=== PATIENT | female | born 1975 | race African-American/Black ===

== ENCOUNTER → 2017-02-24 | Outpatient (CLI) | payer BC ==
--- NOTE | 2017-02-25 09:16 | MM ---
Reason for exam: screening (asymptomatic). Last mammogram was performed 3 years and 5 months ago. History: Family history of breast cancer in mother at age 60. Took hormonal contraceptives beginning at age 13. Physical Findings: A clinical breast exam by your physician is recommended on an annual basis and results should be correlated with mammographic findings. MG Screening Mammo w CAD Bilateral CC and MLO view(s) were taken. Prior study comparison: September 16, 2013, bilateral digital screening mammo w/CAD. May 18, 2008, mammogram, performed at [facility]. There are scattered fibroglandular densities. There is chronic nodularity in the left breast. No significant changes when compared with prior studies. ASSESSMENT: Benign, BI-RAD 2 RECOMMENDATION: Routine screening mammogram of both breasts in 1 year.
== END | disposition home or self-care (01) ==
LOC: RADMAMWWP 12:57
PROVIDERS: ATTEND Obstetrics & Gynecology
DX: Z12.31 Encounter for screening mammogram for malignant neoplasm of breast (principal)

== ENCOUNTER → 2018-03-08 | Outpatient (CLI) | payer BC ==
--- NOTE | 2018-03-08 10:10 | US ---
EXAMINATION TYPE: US pelvis complete transvag DATE OF EXAM: 03/08/2018 COMPARISON: US 09/16/2013 CLINICAL HISTORY: N92.0 Excessive and frequent menstruation with reg; TECHNIQUE: Transvaginal (TV) and Transabdominal (TA) . Transabdominal sonographic images of the pel vis were acquired. Transvaginal sonographic images were medically necessary to better assess the fol lowing anatomy: endometrium and myometrium Date of LMP: 02/12/18 EXAM MEASUREMENTS: Uterus: 12.1 x 9.4 x 7.6cm Endometrial Stripe: 1.0 cm Right Ovary: 3.1 x 2.7 x 1.5 cm Left Ovary: 3.2 x 3.0 x 1.6 cm 1. Uterus: multiple uterine fibroids with largest at left myometrium = 3.4 x 3.8 x 3.8cm (previousl y 3.3 x 2.5 x 3.3 cm); enlarged uterus 2. Endometrium: thickness is wnl for Day 24 LMP 3. Right Ovary: small follicles were seen 4. Left Ovary: small follicles 5. Bilateral Adnexa: wnl 6. Posterior cul-de-sac: wnl IMPRESSION: Slight interval enlargement of the largest known intramural leiomyoma no measuring up to 3.8 cm and previously measured up to 3.3 cm on the exam of 2013. Endometrial thickness is within norm al limits.
== END | disposition home or self-care (01) ==
LOC: RADUSWWP 08:17
PROVIDERS: ATTEND Obstetrics & Gynecology
DX: D25.1 Intramural leiomyoma of uterus (principal)
CPT/HCPCS: 76830; 76856

== ENCOUNTER → 2018-03-08 | Outpatient (CLI) | payer BC ==
[2018-03-08 12:04] LABS: Basophils % (A) 0 %; Eosinophils # (A) 0.2 k/uL (0-0.7); Eosinophils % (A) 4 %; HCT 40.5 % (34.0-46.0); Lymphocytes # (A) 1.9 k/uL (1.0-4.8); Lymphocytes % (A) 33 %; MCH 30.7 pg (25.0-35.0); MCHC 32.2 g/dL (31.0-37.0); MCV 95.5 fL (80.0-100.0); Mean Platelet Volume 6.8; Monocytes # (A) 0.5 k/uL (0-1.0); Monocytes % (A) 8 %; Neutrophils # (A) 2.9 k/uL (1.3-7.7); Neutrophils % (A) 51 %; Platelet Count 267 k/uL (150-450); RBC 4.24 m/uL (3.80-5.40); RDW 13.9 % (11.5-15.5); WBC 5.7 k/uL (3.8-10.6)
== END | disposition home or self-care (01) ==
LOC: LABPAT 09:09
PROVIDERS: ATTEND Obstetrics & Gynecology
DX: Z01.812 Encounter for preprocedural laboratory examination (principal)
CPT/HCPCS: 36415; 85025

== ENCOUNTER 2018-03-29 06:00 | Day surgery (SDC) | payer BC ==
[2018-03-22 13:08] VITALS: BMI 37.3
--- NOTE | 2018-03-28 16:08 | P.HPOB ---
History of Present Illness H&P Date: 03/28/18 Chief Complaint: Menorrhagia with regular cycle, family planning This is a 42-year-old female 4 para 3 who presents for dilation and curettage with hysteroscopy and NovaSure endometrial ablation for menorrhagia with regular cycle and laparoscopic bilateral tubal ligation via fulguration for family planning. She complains of heavy painful menses that have been going on for years now but have been worsening. Her menses are occurring every 32-35 days and lasting at least 10 days with large clots. She has to wear an overnight pad and change it every hour during her heaviest times. Her latest ultrasound showed a uterus measuring 12.1 x 9.4 x 7.6 cm with multiple fibroids. The largest was at the left myometrium measuring 3.8 x 3.4 cm. Endometrial thickness was 1 cm. Both ovaries were normal sized with small follicles. Review of Systems Constitutional: Reports fatigue (First 2 days of cycle), Reports night sweats, Denies chills, Denies fever Eyes: denies blurred vision, denies pain Ears, nose, mouth and throat: Denies headache, Denies sore throat Cardiovascular: Denies chest pain, Denies shortness of breath Respiratory: Denies cough Gastrointestinal: Denies abdominal pain, Denies diarrhea, Denies nausea, Denies vomiting Genitourinary: Reports dysmenorrhea, Reports menorrhagia, Reports pelvic pain Musculoskeletal: Reports low back pain Musculoskeletal: left: foot swelling Integumentary: Denies pruritus, Denies rash Neurological: Denies numbness, Denies weakness Psychiatric: Reports anxiety, Reports depression, Reports irritability Past Medical History Past Medical History: Hypertension History of Any Multi-Drug Resistant Organisms: None Reported Additional Past Surgical History / Comment(s): [place] teeth extracted, D&C. Past Anesthesia/Blood Transfusion Reactions: No Reported Reaction Past Psychological History: Anxiety, Depression Smoking Status: Current every day smoker Past Alcohol Use History: Occasional Additional Past Alcohol Use History / Comment(s): Has been smoking for 5 yrs, 1/ 2 PPD. Past Drug Use History: Opiates Additional Drug Use History / Comment(s): Hx of addiction to Opiates 10 yrs ago for 2 yrs, has been on Suboxone, weaned self off 30 days ago. (Patient's family unaware of this history, please keep confidential per patient.) - Past Family History Father Family Medical History: Cancer Additional Family Medical History / Comment(s): Prostate cancer. Mother Family Medical History: Cancer Additional Family Medical History / Comment(s): Breast cancer. Medications and Allergies Home Medications Medication Instructions Recorded Confirmed Type Triamterene-Hctz 37.5-25Mg 1 tab PO QAM 08/16/16 03/22/18 History [Maxzide 37.5-25] ALPRAZolam [Xanax] 1 mg PO BID PRN 03/22/18 03/22/18 History Iron (Unknown Dose) 1 tab PO DAILY 03/22/18 03/22/18 History Multivitamins, Thera [Multivitamin 1 tab PO DAILY 03/22/18 03/22/18 History (formulary)] Allergies Allergy/AdvReac Type Severity Reaction Status Date / Time Penicillins Allergy Rash/Hives Verified 03/22/18 12:39 Exam Osteopathic Statement: *. No significant issues noted on an osteopathic structural exam other than those noted in the History and Physical/Consult. HEENT: Within normal limits Heart: Regular rate and rhythm Lungs: Clear to auscultation bilaterally Abdomen: Soft, nontender Pelvic exam: Uterus is anteverted, slightly enlarged and nodular, with no adnexal masses or tenderness noted. Extremities: Negative Homans Assessment and Plan (1) Menorrhagia with regular cycle Status: Acute Code(s): N92.0 - EXCESSIVE AND FREQUENT MENSTRUATION WITH REGULAR CYCLE SNOMED Code(s): 400386234 (2) Family planning Status: Acute Code(s): Z30.09 - ENCOUNTER FOR OT GENERAL CNSL AND ADVICE ON CONTRACEPTION SNOMED Code(s): 334550899 Plan: Proceed with laparoscopic bilateral tubal ligation via fulguration and dilation and curettage with hysteroscopy and NovaSure endometrial ablation. I have discussed the risks, benefits, and alternative therapies for the above- mentioned procedure and for both sedation/anesthesia as well as necessary blood products administration, if indicated, as they pertain to this patient. The patient has indicated her understanding and acceptance of the risks and procedures discussed.
[~2018-03-29 06:00] MED LIST: DEXAMETHASONE SOD PHOSPHATE 10 MG/ML 1 ML VIAL IV ONE; LACTATED RINGERS 1,000 ML IV SCH; LIDOCAINE 1% 20 ML VIAL (10MG/ML) FOR IV START INTRADERMA PRN; MIDAZOLAM 2 MG/2 ML VIAL IV PRN; ONDANSETRON 4 MG/2 ML VIAL IVP ONE; Pre Op ABX Message 1 EACH MISC MISCELLANE ONE; SCOPOLAMINE 1.5MG/72HR PATCH TRANSDERM ONE
[2018-03-29] MEDS ORDERED: SUCCINYLCHOLINE CHLORIDE 100 MG/5 ML SYR IV ONE (07:39)
[2018-03-29] MEDS ORDERED: MIDAZOLAM 2 MG/2 ML VIAL ONE (07:39)
[2018-03-29] MEDS ORDERED: GLYCOPYRROLATE 0.2 MG/ML 2 ML VIAL ONE ×2 (07:39)
[2018-03-29] MEDS ORDERED: PROPOFOL 10 MG/ML 20 ML VIAL IV ONE (07:39)
[2018-03-29] MEDS ORDERED: ROCURONIUM BROMIDE 10 MG/ML 10 ML VIAL IV ONE (07:39)
[2018-03-29] MEDS ORDERED: fentaNYL (PF) 50 MCG/ML 2 ML AMP ONE (07:39)
[2018-03-29] MEDS ORDERED: NEOSTIGMINE 1 MG/ML 10 ML VIAL ONE (07:39)
[2018-03-29] MEDS ORDERED: LIDOCAINE 2%-EPI 1:100,000 20 ML VIAL ONE (07:39)
[2018-03-29] MEDS ORDERED: KETOROLAC 30 MG/ML 1 ML VIAL ONE (07:39)
[2018-03-29] MEDS ORDERED: BUPIVACAINE (PF) 0.5% 30 ML VIAL SQ ONE ×2 (08:22)
--- NOTE | 2018-03-29 08:37 | P.OP ---
Date of Procedure: 03/29/18 Preoperative Diagnosis: Menorrhagia with regular cycle Family planning Postoperative Diagnosis: Same Procedure(s) Performed: Dilation and curettage with hysteroscopy and attempted NovaSure endometrial ablation Laparoscopic bilateral tubal ligation via fulguration Anesthesia: GILBERTO Surgeon: Elizabeth Li Estimated Blood Loss (ml): 25 Pathology: other (Endometrial curettings) Condition: stable Disposition: same day Indications for Procedure: This is a 42-year-old female 4 para 3 who presents for dilation and curettage with hysteroscopy and NovaSure endometrial ablation for menorrhagia with regular cycle and laparoscopic bilateral tubal ligation via fulguration for family planning. She complains of heavy painful menses that have been going on for years now but have been worsening. Her menses are occurring every 32-35 days and lasting at least 10 days with large clots. She has to wear an overnight pad and change it every hour during her heaviest times. Her latest ultrasound showed a uterus measuring 12.1 x 9.4 x 7.6 cm with multiple fibroids. The largest was at the left myometrium measuring 3.8 x 3.4 cm. Endometrial thickness was 1 cm. Both ovaries were normal sized with small follicles. Operative Findings: Uterus is anteverted and bulky on palpation. No adnexal masses are palpated. Cervix is sounded to 3 cm and uterus is sounded to 10 cm. Upon hysteroscopy a very dyssynchronous endometrial pattern is noted. Neither tubal ostia was completely visualized. A minimal to moderate amount of endometrial curettings are obtained. Upon laparoscopy, a bulky fibroid uterus was noted with multiple fibroids visualized. Both tubes and ovaries appeared normal. The left ovary did have a small simple cyst noted. Description of Procedure: The patient is taken to the operating room. She is placed in the dorsal lithotomy position after general anesthesia was given. She is prepped and draped in the normal sterile fashion. Bladder is drained with a catheter and then removed. Pelvic exam is performed under anesthesia. Uterus is found to be anteverted and bulky with no adnexal masses. She is placed in slight Trendelenburg position. A right angle retractor is used to visualize the cervix. The anterior lip of the cervix is grasped with a single-tooth tenaculum. Cervix is sounded to 3 cm. Uterus is sounded to 10 cm. Cervix is gently dilated with Samaniego dilators until a hysteroscope could be passed. Hysteroscopy is performed using normal saline. The above noted findings are noted. Next a polyp forceps is introduced. A minimal amount of tissue was obtained. Next medium-sized size sharp curette was placed. A minimal to moderate amount of endometrial curettings were obtained. Next NovaSure array was inserted into the endometrial cavity. Length was set at 6.5 cm and width was determined to be 4.8 cm. Next cavity assessment was completed and passed on the first try. Next NovaSure array was fired at 172 W for initially 46 seconds followed by another 16 seconds for a total of 59 seconds. After the first 46 seconds, a vacuum air was noted. The array was removed and then replaced and cavity assessment was again completed and passed and then another 16 seconds of ablation was carried out before the vacuum air happened again. The array was again removed and then reinserted and this time the cavity assessment did not pass. The procedure was then abandoned. Next the array was removed, inspected and then discarded. Next the hysteroscope was reinserted. Uniform charring was noted. Pictures were taken. Hysteroscope was removed. Next a kroner uterine manipulator was inserted through the cervix and the balloon was inflated. Single-tooth tenaculum was removed from the anterior lip of the cervix. Minimal bleeding was noted. All other instruments removed from the vagina. Attention is then turned to the abdomen after gloves are changed. The infraumbilical fold was grasped in transverse fashion with 2 Allis clamps. A small transverse incision was made with a scalpel. A hemostat was used to carry the incision down to the underlying layer of fascia. A towel clip was placed above the umbilicus for retraction. A 11 mm disposable bladeless trocar was then inserted into the peritoneal cavity under direct visualization. Once inside, pneumoperitoneum was achieved with CO2 gas. The insert was removed and the camera was placed. Intraperitoneal placement was confirmed. No bleeding was noted. Next the patient was placed in Trendelenburg position. A small stab incision was made suprapubically and a 5 mm disposable bladeless trocar was inserted into the peritoneal cavity under direct visualization. Once inside pelvic contents were inspected. Next a bipolar Kleppinger instrument was placed through the inferior trocar and the midportion of each tube was brought away from other structures and completely fulgurated on approximate 2-3 cm segment of each tube. Excellent hemostasis was noted. Pictures were taken. Pneumoperitoneum was released after the inferior trocar was removed under direct visualization. The upper trocar was then removed. The fascial incision was closed with 0 Vicryl suture in interrupted [id number] stitch. The skin incisions were then closed with 4-0 Vicryl suture in a subcuticular fashion. The inferior incision was also closed with a single interrupted stitch for hemostasis. Incision sites were then injected with half percent bupivacaine. Approximately 7 mL were used. Next the kroner uterine manipulator was removed. Minimal bleeding was noted. All sponge and needle counts are correct. The patient is then taken to recovery room in stable condition.
[2018-03-29] MEDS: HYDROmorphone 1 MG/ML 1 ML SYRINGE IVP PRN ×2 (08:55→09:00)
[2018-03-29 09:03] VITALS: TEMP 98
[2018-03-29] MEDS: MEPERIDINE 50 MG/ML SYRINGE IVP ONE ×2 (09:06→09:12)
[2018-03-29] MEDS ORDERED: diphenhydrAMINE 50 MG/ML 1 ML VIAL IVP ONE (09:12)
[2018-03-29] MEDS ORDERED: METOPROLOL TARTRATE 5 MG/5 ML VIAL IVP ONE (09:21)
[2018-03-29] MEDS ORDERED: fentaNYL (PF) 50 MCG/ML 2 ML AMP IVP ONE (09:31)
[2018-03-29] MEDS ORDERED: HYDROcodone/APAP 5-325MG 1 EACH TAB PO ONE (10:18)
[2018-03-29 10:51] VITALS: BP 149/69; PULSE 67; RESP 20
== END 2018-03-29 11:07 | disposition home or self-care (01) ==
LOC: OR 06:00
PROVIDERS: ATTEND Obstetrics & Gynecology
DX: Z30.2 Encounter for sterilization (principal); D25.9 Leiomyoma of uterus, unspecified; N92.0 Excessive and frequent menstruation with regular cycle; N94.6 Dysmenorrhea, unspecified; I10 Essential (primary) hypertension; F41.9 Anxiety disorder, unspecified; F32.9 Major depressive disorder, single episode, unspecified; F17.210 Nicotine dependence, cigarettes, uncomplicated; Z79.899 Other long term (current) drug therapy; Z88.0 Allergy status to penicillin
CPT/HCPCS: 81025; 58563; 58670; J2250; J1200; J1100; J2710; J2175; J2405; J3010; J1885; J1170; J0330; J2704; 88305

== ENCOUNTER 2018-04-14 07:52 | Emergency (ER) | payer BC ==
[2018-04-14 08:00] VITALS: RESP 18
[2018-04-14] MEDS ORDERED: MORPHINE SULFATE 2 MG/ML SYRINGE IVP STA (08:31)
[2018-04-14] MEDS ORDERED: SODIUM CHLORIDE 0.9% 1,000 ML IV ONE (08:31)
[2018-04-14] MEDS ORDERED: ONDANSETRON 4 MG/2 ML VIAL IVP STA (08:31)
--- NOTE | 2018-04-14 08:37 | ED ---
Female Urogenital HPI - General Chief complaint: Vaginal Bleeding Stated complaint: Bleeding/abd.pain/post surgery Time Seen by Provider: 04/14/18 08:06 Source: patient, RN notes reviewed, old records reviewed Mode of arrival: ambulatory Limitations: no limitations - History of Present Illness Initial comments: This patient's a 42-year-old female proximally 2 weeks post D&C and tubal ligation by Dr. Li. Patient reports that last night into today she started to have some heavy vaginal bleeding. Patient states that she also has been having some suprapubic sharp pain. Patient reports that when they did the D&C she continued to have some cysts afterwards. They were unable to remove the mall that time. Patient states that she has had no fevers or chills. She does report that she has history of poor bowel movements, and has had 3 bowel movements within the past 2 weeks. She denies any drainage from the umbilical and suprapubic incision site. Last Menstrual Period: 03/11/18 - Related Data Home Medications Medication Instructions Recorded Confirmed Triamterene-Hctz 37.5-25Mg 1 tab PO QAM 08/16/04/14/18 [Maxzide 37.5-25] ALPRAZolam [Xanax] 1 mg PO BID PRN 03/22/18 04/14/18 Iron (Unknown Dose) 1 tab PO DAILY 03/22/18 04/14/18 Multivitamins, Thera [Multivitamin 1 tab PO DAILY 03/22/18 04/14/18 (formulary)] Previous Rx's Medication Instructions Recorded Acetaminophen-Codeine 300-30mg 1 tab PO Q6H PRN 3 Days #12 tablet 04/14/18 [Tylenol w/codeine #3] Ciprofloxacin HCl [Cipro] 500 mg PO Q12HR #20 tablet 04/14/18 Docusate [Colace] 100 mg PO BID #20 capsule 04/14/18 metroNIDAZOLE [Flagyl] 500 mg PO TID #30 tab 04/14/18 Allergies Allergy/AdvReac Type Severity Reaction Status Date / Time Penicillins Allergy Rash/Hives Verified 04/14/18 08:00 Review of Systems ROS Statement: Those systems with pertinent positive or pertinent negative responses have been documented in the HPI. ROS Other: All systems not noted in ROS Statement are negative. Past Medical History Past Medical History: Hypertension History of Any Multi-Drug Resistant Organisms: None Reported Past Surgical History: Ablation Additional Past Surgical History / Comment(s): [place] teeth extracted, D&C. Past Anesthesia/Blood Transfusion Reactions: No Reported Reaction Past Psychological History: Anxiety, Depression Smoking Status: Current every day smoker Past Alcohol Use History: Occasional Past Drug Use History: None Reported, Opiates - Past Family History Father Family Medical History: Cancer Additional Family Medical History / Comment(s): Prostate cancer. Mother Family Medical History: Cancer Additional Family Medical History / Comment(s): Breast cancer. General Exam - General Exam Comments Initial Comments: Well-appearing 42-year-old -[place] female. No significant distress. Limitations: no limitations General appearance: alert, in no apparent distress Head exam: Present: atraumatic, normocephalic, normal inspection Eye exam: Present: normal appearance, PERRL, EOMI. Absent: scleral icterus, conjunctival injection, periorbital swelling ENT exam: Present: normal exam, mucous membranes moist Neck exam: Present: normal inspection. Absent: tenderness, meningismus, lymphadenopathy Respiratory exam: Present: normal lung sounds bilaterally. Absent: respiratory distress, wheezes, rales, rhonchi, stridor Cardiovascular Exam: Present: regular rate, normal rhythm, normal heart sounds. Absent: systolic murmur, diastolic murmur, rubs, gallop, clicks GI/Abdominal exam: Present: soft, tenderness (suprapubic tenderness, left lower quadrant tenderness), normal bowel sounds. Absent: distended, guarding, rebound , rigid Extremities exam: Present: normal inspection, full ROM, normal capillary refill. Absent: tenderness, pedal edema, joint swelling, calf tenderness Back exam: Present: normal inspection Neurological exam: Present: alert, oriented X3, CN II-XII intact Psychiatric exam: Present: normal affect, normal mood Skin exam: Present: warm, dry, intact, normal color. Absent: rash Course Vital Signs 04/14/18 04/14/18 07:56 10:25 Temperature 98.3 F Pulse Rate 96 84 Respiratory 18 18 Rate Blood Pressure 132/84 138/79 O2 Sat by Pulse 100 99 Oximetry Medical Decision Making - Medical Decision Making 42-year-old female comes in today with increased vaginal bleeding and lower abdominal pain. Patient has some left lower quadrant suprapubic tenderness. She does report history of constipation as well. Patient labwork obtained was unremarkable. Vital signs are stable. Computed tomography scan shows suspicious for diverticulitis, for Patient of these results. Patient was started on Cipro and Flagyl. Her bleeding has diminished at this time. No significant bleeding noted on external exam. Patient SENIOR RESEARCH CONSULTANT is Dr. Li. I informed her that her hemoglobin and white blood cell count are stable. No concern for infectious process related to her recent surgery. She does continue a bulky uterus and fibroids. Likely related to the source of bleeding Patient could also be on her menstrual cycle at this time. I did discuss close follow-up with PCP and SENIOR RESEARCH CONSULTANT. All questions answered return parameters were discussed. - Lab Data Result diagrams: 04/14/18 08:40 04/14/18 08:40 Lab Results 04/14/18 04/14/18 04/14/18 Range/Units 08:33 08:40 08:40 WBC 5.6 (3.8-10.6) k/uL RBC 4.45 (3.80-5.40) m/uL Hgb 13.3 (11.4-16.0) gm/dL Hct 41.8 (34.0-46.0) % MCV 93.9 (80.0-100.0) fL MCH 29.9 (25.0-35.0) pg MCHC 31.9 (31.0-37.0) g/dL RDW 13.1 (11.5-15.5) % Plt Count 298 (150-450) k/uL Neutrophils % 51 % Lymphocytes % 34 % Monocytes % 8 % Eosinophils % 5 % Basophils % 0 % Neutrophils # 2.8 (1.3-7.7) k/uL Lymphocytes # 1.9 (1.0-4.8) k/uL Monocytes # 0.4 (0-1.0) k/uL Eosinophils # 0.3 (0-0.7) k/uL Basophils # 0.0 (0-0.2) k/uL PT (9.0-12.0) sec INR (<1.2) APTT (22.0-30.0) sec Sodium 140 (137-145) mmol/L Potassium 4.7 (3.5-5.1) mmol/L Chloride 106 (98-107) mmol/L Carbon Dioxide 22 (22-30) mmol/L Anion Gap 12 mmol/L BUN 13 (7-17) mg/dL Creatinine 0.71 (0.52-1.04) mg/dL Est GFR (CKD-EPI)AfAm >90 (>60 ml/min/1.73 sqM) Est GFR (CKD-EPI)NonAf >90 (>60 ml/min/1.73 sqM) Glucose 93 (74-99) mg/dL Calcium 9.7 (8.4-10.2) mg/dL Total Bilirubin 0.3 (0.2-1.3) mg/dL AST 22 (14-36) U/L ALT 27 (9-52) U/L Alkaline Phosphatase 90 (38-126) U/L Total Protein 7.7 (6.3-8.2) g/dL Albumin 4.6 (3.5-5.0) g/dL Urine Color Light Red Urine Appearance Turbid H (Clear) Urine pH 5.5 (5.0-8.0) Ur Specific [place] 1.017 (1.001-1.035) Urine Protein 1+ H (Negative) Urine Glucose (UA) Negative (Negative) Urine Ketones Negative (Negative) Urine Blood Large H (Negative) Urine Nitrite Negative (Negative) Urine Bilirubin Negative (Negative) Urine Urobilinogen <2.0 (<2.0) mg/dL Ur Leukocyte Esterase Small H (Negative) Urine RBC 81 H (0-5) /hpf Urine WBC 8 H (0-5) /hpf Ur Squamous Epith Cells 2 (0-4) /hpf Amorphous Sediment Occasional H (None) /hpf Urine Bacteria Occasional H (None) /hpf Urine Mucus Many H (None) /hpf Blood Type Blood Type Recheck Antibody Screen Spec Expiration Date 04/14/18 04/14/18 Range/Units 08:40 08:40 WBC (3.8-10.6) k/uL RBC (3.80-5.40) m/uL Hgb (11.4-16.0) gm/dL Hct (34.0-46.0) % MCV (80.0-100.0) fL MCH (25.0-35.0) pg MCHC (31.0-37.0) g/dL RDW (11.5-15.5) % Plt Count (150-450) k/uL Neutrophils % % Lymphocytes % % Monocytes % % Eosinophils % % Basophils % % Neutrophils # (1.3-7.7) k/uL Lymphocytes # (1.0-4.8) k/uL Monocytes # (0-1.0) k/uL Eosinophils # (0-0.7) k/uL Basophils # (0-0.2) k/uL PT 9.5 (9.0-12.0) sec INR 0.9 (<1.2) APTT 21.8 L (22.0-30.0) sec Sodium (137-145) mmol/L Potassium (3.5-5.1) mmol/L Chloride (98-107) mmol/L Carbon Dioxide (22-30) mmol/L Anion Gap mmol/L BUN (7-17) mg/dL Creatinine (0.52-1.04) mg/dL Est GFR (CKD-EPI)AfAm (>60 ml/min/1.73 sqM) Est GFR (CKD-EPI)NonAf (>60 ml/min/1.73 sqM) Glucose (74-99) mg/dL Calcium (8.4-10.2) mg/dL Total Bilirubin (0.2-1.3) mg/dL AST (14-36) U/L ALT (9-52) U/L Alkaline Phosphatase (38-126) U/L Total Protein (6.3-8.2) g/dL Albumin (3.5-5.0) g/dL Urine Color Urine Appearance (Clear) Urine pH (5.0-8.0) Ur Specific [place] (1.001-1.035) Urine Protein (Negative) Urine Glucose (UA) (Negative) Urine Ketones (Negative) Urine Blood (Negative) Urine Nitrite (Negative) Urine Bilirubin (Negative) Urine Urobilinogen (<2.0) mg/dL Ur Leukocyte Esterase (Negative) Urine RBC (0-5) /hpf Urine WBC (0-5) /hpf Ur Squamous Epith Cells (0-4) /hpf Amorphous Sediment (None) /hpf Urine Bacteria (None) /hpf Urine Mucus (None) /hpf Blood Type A Positive Blood Type Recheck No Antibody Screen NEGATIVE Spec Expiration Date 04/17/2018 - 2345 - Radiology Data Radiology results: report reviewed suspicions for Dr. 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 Large bulky uterus compatible with fibroids previously identified. Disposition Clinical Impression: Vaginal bleeding, Diverticulitis, Uterine fibroid Disposition: HOME SELF-CARE Condition: Good Instructions: Dysfunctional Uterine Bleeding (ED), Diverticulitis (ED) Additional Instructions: Patient advised follow-up with primary care provider and SENIOR RESEARCH CONSULTANT. Return to the emergency department if any alarming signs or symptoms occur. Prescriptions: Acetaminophen-Codeine 300-30mg [Tylenol w/codeine #3] 1 tab PO Q6H PRN 3 Days # 12 tablet PRN Reason: Pain Ciprofloxacin HCl [Cipro] 500 mg PO Q12HR #20 tablet Docusate [Colace] 100 mg PO BID #20 capsule metroNIDAZOLE [Flagyl] 500 mg PO TID #30 tab Is patient prescribed a controlled substance at d/c from ED?: Yes When asked, does pt state using other controlled substances?: No If prescribed controlled substance>3 days was MAPS reviewed?: Prescribed <3 Days If opioid is for acute pain is fill amount 7 days or less?: Yes If Rx opioid, was Start Talking consent form obtained?: Yes Referrals: Jennifer Corbett MD [Primary Care Provider] - 1-2 days Time of Disposition: 12:18
[2018-04-14 09:08] LABS: Basophils % (A) 0 %; Eosinophils # (A) 0.3 k/uL (0-0.7); Eosinophils % (A) 5 %; HCT 41.8 % (34.0-46.0); HGB 13.3 gm/dL (11.4-16.0); Lymphocytes # (A) 1.9 k/uL (1.0-4.8); Lymphocytes % (A) 34 %; MCH 29.9 pg (25.0-35.0); MCHC 31.9 g/dL (31.0-37.0); MCV 93.9 fL (80.0-100.0); Mean Platelet Volume 6.8; Monocytes # (A) 0.4 k/uL (0-1.0); Monocytes % (A) 8 %; Neutrophils # (A) 2.8 k/uL (1.3-7.7); Neutrophils % (A) 51 %; Platelet Count 298 k/uL (150-450); RBC 4.45 m/uL (3.80-5.40); RDW 13.1 % (11.5-15.5); WBC 5.6 k/uL (3.8-10.6)
[2018-04-14 09:22] LABS: ALT 27 U/L (9-52); AST 22 U/L (14-36); Albumin 4.6 g/dL (3.5-5.0); Alkaline Phosphatase 90 U/L (38-126); Anion Gap 12 mmol/L; Blood Urea Nitrogen 13 mg/dL (7-17); Calcium 9.7 mg/dL (8.4-10.2); Carbon Dioxide 22 mmol/L (22-30); Chloride 106 mmol/L (98-107); Glucose 93 mg/dL (74-99); Potassium 4.7 mmol/L (3.5-5.1); Sodium 140 mmol/L (137-145); Total Bilirubin 0.3 mg/dL (0.2-1.3); Total Protein 7.7 g/dL (6.3-8.2)
[2018-04-14 09:27] LABS: Amorphous Sediment,Urine Occasional /hpf; Appearance,Urine Turbid (Clear); Bacteria,Urine Occasional /hpf; Bilirubin,Urine Negative (Negative); Blood,Urine Large (Negative); Color,Urine Light Red; Glucose,Urine (UA) Negative (Negative); Ketones,Urine Negative (Negative); Leukocyte Esterase,Urine Small (Negative); Mucus,Urine Many /hpf; Nitrite,Urine Negative (Negative); PH, Urine 5.5 (5.0-8.0); Protein,Urine 1+ (Negative); RBC,Urine 81 /hpf (0-5); Specific Gravity,Urine 1.017 (1.001-1.035); Squamous Epithelial Cell,Urine 2 /hpf (0-4); Urobilinogen,Urine <2.0 mg/dL (<2.0); WBC,Urine 8 /hpf (0-5)
[2018-04-14 09:29] LABS: INR 0.9 (<1.2); Prothrombin Time 9.5 sec (9.0-12.0)
[2018-04-14 09:40] LABS: Partial Thromboplastin Time 21.8 sec (22.0-30.0)
--- NOTE | 2018-04-14 11:26 | CT ---
EXAMINATION TYPE: CT abdomen pelvis w con DATE OF EXAM: 04/14/2018 COMPARISON: Ultrasound pelvis 03/08/2018 INDICATION: Diverticulitis DLP: 392.7 mGycm, Automated exposure control for dose reduction was used. CONTRAST: 100 mL of Isovue 300. Study performed with Oral Contrast TECHNIQUE: Axial images were obtained from above the diaphragm to the pubic rami in the axial plane a t 5 mm thick sections. Reconstructed images are reviewed on the computer in the coronal plane. FINDINGS: Limited CT sections are obtained the lung bases. The lung bases are clear. CT ABDOMEN: Liver: Normal Spleen: Normal Pancreas: Normal Adrenal glands: The adrenal glands are normal. Gallbladder: Normal Kidneys: No masses are evident. No hydronephrosis is present. No cysts are present. Delayed images were obtained through the kidneys, which remain unremarkable. Aorta: Normal Inferior vena cava: Normal. CT PELVIS: Loops of bowel within the abdomen and pelvis are normal. Studies without oral contrast limiting t he evaluation. No suspicious changes for acute diverticulitis are evident. Significant diverticulosis is not evident. Appendix: Normal as visualized. Urinary bladder: Normal. Genitourinary structures: Uterus is enlarged heterogenous and bulky. Findings are compatible with the ultrasound findings of 03/08/2018. Osseous structures: Atherosclerosis along the medial right iliac wing. Correlate for a sclerotic meta stasis. Other etiologies including Paget's could be considered. IMPRESSIONS: 1. No suspicious changes for acute diverticulitis. 2. Sclerosis along the medial right ilium. Sclerotic metastasis Paget's could be considered. 3. Large bulky uterus compatible with fibroids previously identified.
[2018-04-14] MEDS ORDERED: CIPROFLOXACIN HCL 500 MG TAB PO STA (12:17)
[2018-04-14] MEDS ORDERED: metroNIDAZOLE 500 MG TAB PO STA (12:17)
[2018-04-14 13:02] VITALS: BP 128/62; PULSE 73; TEMP 98
== END 2018-04-14 13:02 | disposition home or self-care (01) ==
LOC: EC 07:52
DX: D25.9 Leiomyoma of uterus, unspecified (principal); K57.92 Diverticulitis of intestine, part unspecified, without perforation or abscess without bleeding; N85.2 Hypertrophy of uterus; I10 Essential (primary) hypertension; F17.200 Nicotine dependence, unspecified, uncomplicated; Z79.899 Other long term (current) drug therapy; Z88.0 Allergy status to penicillin; Z98.51 Tubal ligation status
CPT/HCPCS: 36415; 74177; 80053; 81001; 85025; 85610; 85730; 86850; 86900; 86901; 87086; 96361; 96374; 96375; 99284

== ENCOUNTER 2021-06-03 16:49 | Inpatient (IN) | payer BC ==
[2021-06-03] MEDS ORDERED: SODIUM CHLORIDE 0.9% 1,000 ML IV ONE (18:43)
--- NOTE | 2021-06-03 19:42 | XR ---
EXAMINATION TYPE: XR chest 2V DATE OF EXAM: 06/03/2021 COMPARISON: CT abdomen February 12, 2011 HISTORY: Fall TECHNIQUE: Frontal and lateral views of the chest are obtained. FINDINGS: There is no focal air space opacity, pleural effusion, or pneumothorax seen. The cardiac silhouette size is within normal limits. The osseous structures are intact. IMPRESSION: No acute cardiopulmonary process.
[2021-06-03 19:49] LABS: Basophils % (A) 0 %; Eosinophils % (A) 0 %; HCT 39.8 % (34.0-46.0); Lymphocytes # (A) 1.2 k/uL (1.0-4.8); Lymphocytes % (A) 17 %; MCH 32.2 pg (25.0-35.0); MCHC 32.7 g/dL (31.0-37.0); MCV 98.4 fL (80.0-100.0); Mean Platelet Volume 7.4; Monocytes # (A) 0.7 k/uL (0-1.0); Monocytes % (A) 10 %; Neutrophils # (A) 5.1 k/uL (1.3-7.7); Neutrophils % (A) 71 %; Platelet Count 348 k/uL (150-450); RBC 4.04 m/uL (3.80-5.40); RDW 12.3 % (11.5-15.5); WBC 7.2 k/uL (3.8-10.6)
--- NOTE | 2021-06-03 19:53 | CT ---
EXAMINATION TYPE: CT brain wo con DATE OF EXAM: 06/03/2021 COMPARISON: CT 08/16/2016 HISTORY: AMS CT DLP: 1201 mGycm. Automated Exposure Control for Dose Reduction was Utilized. TECHNIQUE: CT scan of the head is performed without contrast. FINDINGS: There is no acute intracranial hemorrhage, mass effect, or midline shift identified. The ventricles and sulci are within normal limits in size. The globes are intact and the visualized sin uses are clear. IMPRESSION: No acute intracranial hemorrhage, mass effect, or midline shift is seen.
[2021-06-03 20:04] LABS: ALT 13 U/L (4-34); African American GFR (CKD) >90 (>60 ml/min/1.73 sqM); Alcohol <10 mg/dL; Anion Gap 16 mmol/L; Blood Urea Nitrogen 22 mg/dL (7-17); Calcium 9.5 mg/dL (8.4-10.2); Carbon Dioxide 22 mmol/L (22-30); Chloride 99 mmol/L (98-107); Creatine Kinase 205 U/L (30-135); Glucose 111 mg/dL (74-99); Non-African American GFR(CKD) >90 (>60 ml/min/1.73 sqM); Sodium 137 mmol/L (137-145); Total Bilirubin 0.7 mg/dL (0.2-1.3); Total Protein 8.5 g/dL (6.3-8.2)
[2021-06-03 20:06] LABS: Partial Thromboplastin Time 22.6 sec (22.0-30.0); Prothrombin Time 10.9 sec (9.0-12.0)
[2021-06-03 20:07] LABS: AST 25 U/L (14-36); Alkaline Phosphatase 74 U/L (38-126); Potassium 4.4 mmol/L (3.5-5.1)
[2021-06-03] MEDS ORDERED: ONDANSETRON 4 MG/2 ML VIAL IVP PRN (21:29)
[2021-06-03] MEDS ORDERED: hydrALAZINE HCL 20 MG/ML 1 ML VIAL IVP STA (21:58)
--- NOTE | 2021-06-03 21:59 | ED ---
General Adult HPI - General Chief complaint: Altered Mental Status Stated complaint: high bp Time Seen by Provider: 06/03/21 17:58 Source: patient, EMS, RN notes reviewed, old records reviewed Mode of arrival: EMS Limitations: no limitations - History of Present Illness Initial comments: Patient is a 46-year-old female who I evaluated when she was placed in a room. Patient presents emergency Department with family members over concern for altered mental status. She has no known drug history. She does drink white clots occasionally. They state that she is sleepier than normal and does not respond to questioning. They state that this has occurred previously and self resolved after IV fluids. Patient is able to provide history up to questioning. She denies any acute complaints at this time. She states she feels tired. Denies any fevers, chills, cough. Denies any acute ingestions. Denies any history of alcohol withdrawals. Denies any weakness, numbness. Denies any urinary complaints. States she is not . She does not have a headache. Denies any blurry vision. She is slow to respond to questions, but is easily redirectable. She states she has been under a lot of stress lately. She just feels tired. Family members brought to the emergency department for further evaluation. She denies any trauma. - Related Data Home Medications Medication Instructions Recorded Confirmed Triamterene-Hctz 37.5-25Mg 1 tab PO DAILY 08/16/16 06/03/21 [Maxzide 37.5-25] ALPRAZolam [Xanax] 0.5 - 1 mg PO TID PRN 06/03/21 06/03/21 Buprenorphine HCl/Naloxone HCl 1 film SL TID PRN 06/03/21 06/03/21 [Suboxone 4 mg-1 mg Sl Film] Allergies Allergy/AdvReac Type Severity Reaction Status Date / Time Penicillins Allergy Rash/Hives Verified 06/03/21 21:40 Review of Systems ROS Statement: Those systems with pertinent positive or pertinent negative responses have been documented in the HPI. Review of Systems: CONST: Denies fever EYES: Denies blurry vision ENT: Denies nasal congestion C/V: Denies Chest pain RESP: Denies shortness of breath GI: Denies abdominal pain : Denies dysuria SKIN: Denies rash. MSK: Denies joint pain. NEURO: Denies headache PSYCH: Denies suicidal and homicidal ideations/plans/attempts. Denies visual or auditory hallucinations. ROS Other: All systems not noted in ROS Statement are negative. Past Medical History Past Medical History: Hypertension History of Any Multi-Drug Resistant Organisms: None Reported Past Surgical History: Ablation Additional Past Surgical History / Comment(s): [place] teeth extracted, D&C. Past Anesthesia/Blood Transfusion Reactions: No Reported Reaction Past Psychological History: Anxiety, Depression Past Alcohol Use History: Occasional Past Drug Use History: None Reported, Opiates - Past Family History Father Family Medical History: Cancer Additional Family Medical History / Comment(s): Prostate cancer. Mother Family Medical History: Cancer Additional Family Medical History / Comment(s): Breast cancer. General Exam - General Exam Comments Initial Comments: General: Appears in no acute distress. Patient occasionally stares off into space but is easily redirectable. HEAD: Normal with no signs of head trauma. EYES: PERRLA, EOMI, conjunctiva normal, no discharge. Pupils are 3 mm and equal bilaterally. ENT: Hearing grossly intact, normal oropharynx. Moist mucous membranes. RESPIRATORY: Clear breath sounds bilaterally. No wheezes, rales, or rhonchi. C/V: Regular rate and rhythm. S1 and S2 auscultated, no edema, peripheral pulses 2+ and intact throughout ABD: Abd is soft, nontender, nondistended EXT: Normal range of motion, no obvious deformity SKIN: No rashes or lesions observed on exposed skin. NEURO: Alert and oriented 3-4. NIH is 0. GCS is 15. No focal sensory strength deficits. Patient does occasionally stare off into the corner of the room but is easily redirectable. This does not appear to be seizure-like activity is is easily extinguishable with further interaction with the patient. Limitations: no limitations Course Vital Signs 06/03/21 06/03/21 17:06 20:45 Temperature 98 F Pulse Rate 105 H 108 H Respiratory 18 18 Rate Blood Pressure 182/92 188/86 O2 Sat by Pulse 100 99 Oximetry Medical Decision Making - Medical Decision Making Based on the patient's presentation and physical exam, she does appear to have altered mental status that is consistent questionable on further interaction. I was able to have the patient's family members stepout and I opened the patient alone. She states she is under increased stress lately. She is more alert during this conversation. She is oriented 4 at that time. I did offer her evaluation by psychiatry and she was in agreement with the plan. We will continue to monitor her mental status will she is in the department. However we will obtain brought altered mental status workup. This includes CT imaging cardiac workup. They were in agreement this plan. She'll be connected to continuous cardiac monitoring. Blood pressure is mildly elevated we will continue to monitor in the department. Patient's CT imaging were negative for acute intracranial process. EKG showed no signs of acute ischemia. Chest x-ray showed no acute cardiopulmonary process. Laboratory studies were remarkable for negative troponin. CPK is mild ly elevated to 205. Alcohol is negative. COVID-19 swab is negative. Remainder of her labs are negative. EKG has normal intervals. Patient denies intoxication or overdose attempt. I discussed with the patient as well as family the results of her negative workup. I did offer admission to the hospital, as the patient is still having some mildly sluggish responses, however they are when I speak with her alone. There were in agreement this plan. Upon further conversation with the patient's family, she does have a history of mental breakdowns. This occurred one previous time with similar results. We will have psychiatry evaluate her on an inpatient basis. UDS and urinalysis are still pending at this time. I spoke with the admitting team under Dr. Lopez who accepted the patient. I a lso consult with psychiatry Dr. Mcintosh. Patient was therefore admitted in stable condition for further observation and psychiatric evaluation. - Lab Data Result diagrams: 06/03/21 19:14 06/03/21 19:14 Lab Results 06/03/21 06/03/21 06/03/21 Range/Units 19:14 19:14 19:14 WBC 7.2 (3.8-10.6) k/uL RBC 4.04 (3.80-5.40) m/uL Hgb 13.0 (11.4-16.0) gm/dL Hct 39.8 (34.0-46.0) % MCV 98.4 (80.0-100.0) fL MCH 32.2 (25.0-35.0) pg MCHC 32.7 (31.0-37.0) g/dL RDW 12.3 (11.5-15.5) % Plt Count 348 (150-450) k/uL MPV 7.4 Neutrophils % 71 % Lymphocytes % 17 % Monocytes % 10 % Eosinophils % 0 % Basophils % 0 % Neutrophils # 5.1 (1.3-7.7) k/uL Lymphocytes # 1.2 (1.0-4.8) k/uL Monocytes # 0.7 (0-1.0) k/uL Eosinophils # 0.0 (0-0.7) k/uL Basophils # 0.0 (0-0.2) k/uL PT 10.9 (9.0-12.0) sec INR 1.0 (<1.2) APTT 22.6 (22.0-30.0) sec Sodium 137 (137-145) mmol/L Potassium 4.4 (3.5-5.1) mmol/L Chloride 99 (98-107) mmol/L Carbon Dioxide 22 (22-30) mmol/L Anion Gap 16 mmol/L BUN 22 H (7-17) mg/dL Creatinine 0.67 (0.52-1.04) mg/dL Est GFR (CKD-EPI)AfAm >90 (>60 ml/min/1.73 sqM) Est GFR (CKD-EPI)NonAf >90 (>60 ml/min/1.73 sqM) Glucose 111 H (74-99) mg/dL Calcium 9.5 (8.4-10.2) mg/dL Total Bilirubin 0.7 (0.2-1.3) mg/dL AST 25 (14-36) U/L ALT 13 (4-34) U/L Alkaline Phosphatase 74 (38-126) U/L Ammonia (<30) umol/L Creatine Kinase 205 H (30-135) U/L Troponin I (0.000-0.034) ng/mL Total Protein 8.5 H (6.3-8.2) g/dL Albumin 5.0 (3.5-5.0) g/dL Serum Alcohol <10 mg/dL 06/03/21 06/03/21 Range/Units 19:14 19:45 WBC (3.8-10.6) k/uL RBC (3.80-5.40) m/uL Hgb (11.4-16.0) gm/dL Hct (34.0-46.0) % MCV (80.0-100.0) fL MCH (25.0-35.0) pg MCHC (31.0-37.0) g/dL RDW (11.5-15.5) % Plt Count (150-450) k/uL MPV Neutrophils % % Lymphocytes % % Monocytes % % Eosinophils % % Basophils % % Neutrophils # (1.3-7.7) k/uL Lymphocytes # (1.0-4.8) k/uL Monocytes # (0-1.0) k/uL Eosinophils # (0-0.7) k/uL Basophils # (0-0.2) k/uL PT (9.0-12.0) sec INR (<1.2) APTT (22.0-30.0) sec Sodium (137-145) mmol/L Potassium (3.5-5.1) mmol/L Chloride (98-107) mmol/L Carbon Dioxide (22-30) mmol/L Anion Gap mmol/L BUN (7-17) mg/dL Creatinine (0.52-1.04) mg/dL Est GFR (CKD-EPI)AfAm (>60 ml/min/1.73 sqM) Est GFR (CKD-EPI)NonAf (>60 ml/min/1.73 sqM) Glucose (74-99) mg/dL Calcium (8.4-10.2) mg/dL Total Bilirubin (0.2-1.3) mg/dL AST (14-36) U/L ALT (4-34) U/L Alkaline Phosphatase (38-126) U/L Ammonia 17 (<30) umol/L Creatine Kinase (30-135) U/L Troponin I <0.012 (0.000-0.034) ng/mL Total Protein (6.3-8.2) g/dL Albumin (3.5-5.0) g/dL Serum Alcohol mg/dL - EKG Data -: EKG Interpreted by Me EKG Comments: 12-lead Electrocardiogram Interpretation Note EKG was reviewed and interpreted by myself. 12-lead ECG performed at 1728 is interpreted by me as revealing normal sinus rhythm at a rate of 96 beats per minute. Busy is normal. MS interval is 130 ms, QRS duration is 70 ms, QTc is 472 ms.. There were no ST or T wave abnormalities to suggest myocardial ischemia or injury. R wave progression across precordium was delayed.. By my interpretation this EKG is non-diagnostic for acute ischemia. Disposition Clinical Impression: Altered mental status, Stress and adjustment reaction Disposition: ADMITTED IP TO THIS HOSP Condition: Stable
[2021-06-04] MEDS: SODIUM CHLORIDE 0.9% 1,000 ML IV SCH ×2 (02:18→16:19)
[2021-06-04 03:32] LABS: Amphetamine Screen,Urine Not Detected (NotDetected); Barbiturate Screen,Urine Not Detected (NotDetected); Benzodiazepines Screen,Urine Not Detected (NotDetected); Cocaine Screen,Urine Not Detected (NotDetected); Methadone Screen, Urine Not Detected (NotDetected); Opiate Screen,Urine Not Detected (NotDetected); Oxycodone Screen, Urine Not Detected (NotDetected); Phencyclidine Screen,Urine Not Detected (NotDetected); Tricyclic Antidepressant,Urine Not Detected (NotDetected); Urn Cannabinoid Scrn Not Detected (NotDetected)
[2021-06-04 03:40] LABS: Amorphous Sediment,Urine Moderate /hpf; Appearance,Urine Turbid (Clear); Bacteria,Urine Moderate /hpf; Bilirubin,Urine Negative (Negative); Blood,Urine Trace (Negative); Color,Urine Yellow; Glucose,Urine (UA) Negative (Negative); Hyaline Casts,Urine 22 /lpf (0-2); Ketones,Urine 2+ (Negative); Leukocyte Esterase,Urine Negative (Negative); Mucus,Urine Many /hpf; Nitrite,Urine Negative (Negative); PH, Urine 5.5 (5.0-8.0); Protein,Urine 1+ (Negative); RBC,Urine 2 /hpf (0-5); Squamous Epithelial Cell,Urine 20 /hpf (0-4); Urobilinogen,Urine <2.0 mg/dL (<2.0); WBC,Urine 4 /hpf (0-5)
[2021-06-04] MEDS: TRIAMTERENE-HCTZ 37.5-25MG 1 EACH TAB PO SCH (08:59)
[2021-06-04] MEDS ORDERED: LORazepam 2 MG/ML INJ IV PRN (13:25)
--- NOTE | 2021-06-04 13:30 | P.HPIM ---
History of Present Illness 46-year-old female came in with altered mental status. Patient is alert and oriented 3 patient does have some tremor pupils are constricted but she says she is a probably undergoing opiate withdrawals. Patient uses Suboxone at home. Patient the had history of prescription opiate overuse. Patient does have some symptoms significant tremors urine drug screen is negative family members brought her in because of they believe patient had seizures although patient does appear to be encephalopathic doesn't have any significant seizures denied any loss of bowel or bladder incontinence. Denied tongue biting. Psychiatry was consulted with concerns of psychiatric issues contributing to her symptomatology which I believe is appropriate. Patient denied any UTI symptoms urine is abnormal but this is asymptomatic bacteriuria patient doesn't have any leukocytosis or fever. She denied any photophobia neck rigidity. REVIEW OF SYSTEMS: CONSTITUTIONAL: No fever, no malaise, no fatigue. HEENT: No recent visual problems or hearing problems. Denied any sore throat. CARDIOVASCULAR: No chest pain, orthopnea, PND, no palpitations, no syncope. PULMONARY: No shortness of breath, no cough, no hemoptysis. GASTROINTESTINAL: No diarrhea, no nausea, no vomiting, no abdominal pain. NEUROLOGICAL: No headaches, no weakness, no numbness. HEMATOLOGICAL: Denies any bleeding or petechiae. GENITOURINARY: Denies any burning micturition, frequency, or urgency. MUSCULOSKELETAL/RHEUMATOLOGICAL: Denies any joint pain, swelling, or any muscle pain. ENDOCRINE: Denies any polyuria or polydipsia. The rest of the 14-point review of systems is negative. PHYSICAL EXAMINATION: GENERAL: The patient is alert and oriented x3, not in any acute distress. Well developed, well nourished. Appears anxious tremulous HEENT: Pupils constricted barely reactive. EOMI. No scleral icterus. No conjunctival pallor. Normocephalic, atraumatic. No pharyngeal erythema. No thyromegaly. CARDIOVASCULAR: S1 and S2 present. No murmurs, rubs, or gallops. PULMONARY: Chest is clear to auscultation, no wheezing or crackles. ABDOMEN: Soft, nontender, nondistended, normoactive bowel sounds. No palpable organomegaly. MUSCULOSKELETAL: No joint swelling or deformity. EXTREMITIES: No cyanosis, clubbing, or pedal edema. NEUROLOGICAL: Gross neurological examination did not reveal any focal deficits. SKIN: No rashes. Assessment and plan -Possible opiate withdrawals patient is bit tremulous alert oriented 3, patient was asked to bring her Suboxone as it's not available as a cody in this hospital. Psychiatry will evaluate the patient. Patient doesn't appear to have any infection patient does have asymptomatic bacteriuria I do not believe he has urinary tract infection. Patient is anxious rather than daily years -Tachycardia: Secondary to above -Asymptomatic bacteriuria will not require any antibiotics at this time -History of prescription opiate overuse -Depression possibility of psychosis: Psychiatry was been consulted -Hypertension -Glucosuria will obtain hemoglobin A1c Patient the is waiting for psychiatry's evaluation. I do not see any appears medical reason for her symptomatology. Believe patient is medically stable to be discharged to psychiatric floor if needed. DVT prophylaxis: Past Medical History Past Medical History: Hypertension History of Any Multi-Drug Resistant Organisms: None Reported Past Surgical History: Ablation Additional Past Surgical History / Comment(s): [place] teeth extracted, D&C. Past Anesthesia/Blood Transfusion Reactions: No Reported Reaction Past Psychological History: Anxiety, Depression Past Alcohol Use History: Occasional Past Drug Use History: None Reported, Opiates - Past Family History Father Family Medical History: Cancer Additional Family Medical History / Comment(s): Prostate cancer. Mother Family Medical History: Cancer Additional Family Medical History / Comment(s): Breast cancer. Medications and Allergies Home Medications Medication Instructions Recorded Confirmed Type Triamterene-Hctz 37.5-25Mg 1 tab PO DAILY 08/16/16 06/03/21 History [Maxzide 37.5-25] ALPRAZolam [Xanax] 0.5 - 1 mg PO TID PRN 06/03/21 06/03/21 History Buprenorphine HCl/Naloxone HCl 1 film SL TID PRN 06/03/21 06/03/21 History [Suboxone 4 mg-1 mg Sl Film] Allergies Allergy/AdvReac Type Severity Reaction Status Date / Time Penicillins Allergy Rash/Hives Verified 06/03/21 21:40 Physical Exam Vitals: Vital Signs Temp Pulse Resp BP Pulse Ox 06/04/21 09:04 98.4 F 101 H 18 147/82 100 06/04/21 08:00 94 18 147/82 100 06/04/21 06:08 98.2 F 100 18 142/80 99 06/04/21 02:13 99.9 F H 102 H 18 150/73 99 06/03/21 23:22 107 H 18 164/79 100 06/03/21 20:45 108 H 18 188/86 99 06/03/21 17:06 98 F 105 H 18 182/92 100 Intake and Output 06/03/21 06/04/21 06/04/21 22:59 06:59 14:59 Other: Weight 90.718 kg Results CBC & Chem 7: 06/03/21 19:14 06/03/21 19:14 Labs: Abnormal Lab Results - Last 24 Hours (Table) 06/03/21 06/04/21 Range/Units 19:14 02:30 BUN 22 H (7-17) mg/dL Glucose 111 H (74-99) mg/dL Creatine Kinase 205 H (30-135) U/L Total Protein 8.5 H (6.3-8.2) g/dL Urine Appearance Turbid H (Clear) Urine Protein 1+ H (Negative) Urine Ketones 2+ H (Negative) Urine Blood Trace H (Negative) Ur Squamous Epith Cells 20 H (0-4) /hpf Amorphous Sediment Moderate H (None) /hpf Urine Bacteria Moderate H (None) /hpf Hyaline Casts 22 H (0-2) /lpf Urine Mucus Many H (None) /hpf
[2021-06-04] MEDS ORDERED: traZODone HCL 50 MG TAB PO PRN (14:03)
[2021-06-04] MEDS ORDERED: busPIRone HCl 5 MG TAB PO PRN (14:03)
[2021-06-04] MEDS ORDERED: clonazePAM 1 MG TAB PO SCH (14:15)
--- NOTE | 2021-06-04 14:20 | P.CN ---
Psychiatric Consult - . Consult date: 06/04/21 Consult:: 06/04/21 14:06 IDENTIFYING DATA: This patient is a 46-year-old -[place] female currently lives with her daughter and her in a house. She has 3 kids total. She is currently unemployed. REASON FOR REFERRAL: Psychiatry was consulted for "stress reaction and depression" HISTORY OF PRESENT ILLNESS: The patient presented to the hospital was brought in by family for concerns of altered mental status. Patient apparently was lethargic in the ER and was not very responsive. She was complaining of an increase of stress lately in her life. She had a computed tomography scan which was negative of her brain. Her UDS was negative for any substances. Patients nurse claims that patient was previously on Suboxone and appears to be tremulous at this time. Patient was seen sitting up on her bed today and was agreeable to speak to quality analyst/technical writer. She claimed that her from family brought her in because "they didn't like the way I look". She states that she wasn't feeling herself lately. She states that there have been significant deaths in the family however was fairly vague about who . When pressed more patient spoke about her friend passing away and her learning about this 2 days ago from her sister who c alled her to tell her about it. She states that she is having some stress at home however did not further elaborate on what is going on. She claims that she's had chronic mild depression and is currently on Suboxone and Xanax as needed. She states that her sleep is "on and off". She claims that she is not having any paranoid symptoms at this time. She did appear to be somewhat confused at times looking around the room and was mildly tremulous in her hands. She believes that today is 07/05/2021, can describe the current president but does not know his name. She knows that she is in [facility]. She was attempting to walk cooperate as best as she could . At this time patient denies any suicidal or homical ideations, intent or plan. Patient denies any auditory, visual hallucinations. Patients admits to using cigarettes daily. She states that she drinks occasional alcohol. She is currently on Suboxone as she was "addicted to pain pills 10 years ago". PAST PSYCHIATRIC HISTORY: Patient has a a history of opiate abuse, anxiety and depression. She is currently taking Xanax as needed and Suboxone which is prescribed by her PCP. Patient denies any previous psychiatric ho spitalizations. Patient denies any psychiatric outpatient follow-up. Patient denies any history of suicide attempts in the past. PAST MEDICAL HISTORY: Hypertension. ALLERGIES: as per EMR. CHEMICAL DEPENDENCY HISTORY: as per HPI. FAMILY PSYCHIATRIC/SUBSTANCE USE HISTORY: denies SOCIAL HISTORY: Patient was born and raised in [place]. She states that she completed high school. She claimed that she had various jobs in the past however is currently unemployed. She lives at home with her daughter and her in a house. She has 3 kids total. She denied any legal history. MENTAL STATUS EXAM: General Appearance: Patient appears to be stated age is alert, appears to be confused at times however attempts to cooperate. Patient appears to have fair hygiene and grooming wearing hospital gown with fair eye contact. Tremulous in her hands. Behavior: Patient is calmly lying in bed without any agitated behavior. Attempts to cooperate yet is confused. Speech: Patient's speech is fluent and nonpressured. Mood/Affect: Patient reports their mood is "ok", affect is congruent Suicidality/Homicidality: Patient denies having any suicidal or homicidal ideation intent or plan. Perceptions: Patient denies any visual hallucinations and denies any auditory hallucinations Though content/process: concrete, vague at times. Logical. Memory and concentration: AOX2, believes that it is 07/04/2021. She appears to have poor concentration. Poor memory recall. Can identify objects in the room. Judgment and insight: limited IMPRESSIONS: Delirium, likely secondary to medication withdrawal (opiates) r/o Benzodiazipine withdrawal/abuse history of mild depression and anxiety history of opioid use disorder PLAN: -At this time patient DOES NOT meet criteria for inpatient psychiatric admission. -Delirium precautions recommended with patient including - avoiding use of narcotics and DIVERSIFIED CROPS FARMWORKER sedatives, limit anticholinergic medications when possible, frequent re-orientation, minimize use of restraints, open window shades during the day and close them at night -Would recommend the following medication changes/additions: Trazodone 50 mg daily at bedtime prn for insomnia/mood, BuSpar 15 mg 3 times a day when necessary for anxiety. Primary team to arrange for patients daughter to bring in her suboxone so that it can be resumed. will hold off on ativan or other bzd as it is unsure whether it is playing a role in her confusion. -rigging up worker to provide patient with outpatient mental health/psychiatry resources for appropriate follow up upon discharge -Microfilm Camera Operator spoke with patient about substance abuse and the harmful effects on medical and mental health, patient verbally understood and agreed. -Communicated plan to patient's nurse and Dr. Guthrie over the phone -Will continue to follow along -Please contact with any questions. 06/04/21 14:19
[2021-06-04] MEDS: NALOXONE HCL SUBLINGUAL PRN (20:20)
[2021-06-04] MEDS: BUPRENORPHINE HCL SUBLINGUAL PRN (20:20)
[2021-06-05] MEDS: SODIUM CHLORIDE 0.9% 1,000 ML IV SCH ×3 (00:28→18:22)
[2021-06-05] MEDS: busPIRone HCl 5 MG TAB PO PRN ×3 (03:52→17:12)
[2021-06-05] MEDS: TRIAMTERENE-HCTZ 37.5-25MG 1 EACH TAB PO SCH (09:59)
[2021-06-05 10:08] LABS: Basophils % (A) 0 %; Eosinophils # (A) 0.1 k/uL (0-0.7); Eosinophils % (A) 1 %; HCT 40.6 % (34.0-46.0); Lymphocytes # (A) 2.6 k/uL (1.0-4.8); Lymphocytes % (A) 29 %; MCH 31.5 pg (25.0-35.0); MCV 98.3 fL (80.0-100.0); Mean Platelet Volume 6.9; Monocytes # (A) 0.7 k/uL (0-1.0); Monocytes % (A) 8 %; Neutrophils # (A) 5.4 k/uL (1.3-7.7); Neutrophils % (A) 59 %; Platelet Count 348 k/uL (150-450); RBC 4.13 m/uL (3.80-5.40); RDW 12.1 % (11.5-15.5); WBC 9.1 k/uL (3.8-10.6)
[2021-06-05 10:33] LABS: African American GFR (CKD) >90 (>60 ml/min/1.73 sqM); Anion Gap 14 mmol/L; Blood Urea Nitrogen 16 mg/dL (7-17); Calcium 9.9 mg/dL (8.4-10.2); Carbon Dioxide 23 mmol/L (22-30); Chloride 98 mmol/L (98-107); Glucose 145 mg/dL (74-99); Non-African American GFR(CKD) >90 (>60 ml/min/1.73 sqM); Potassium 3.7 mmol/L (3.5-5.1); Sodium 135 mmol/L (137-145)
[2021-06-05] MEDS: BUPRENORPHINE HCL SUBLINGUAL PRN (11:03)
[2021-06-05] MEDS: NALOXONE HCL SUBLINGUAL PRN (11:03)
--- NOTE | 2021-06-05 13:44 | P.PN ---
Subjective Progress Note Date: 06/05/21 46-year-old female came in with altered mental status. Patient is alert and oriented 3 patient does have some tremor pupils are constricted but she says she is a probably undergoing opiate withdrawals. Patient uses Suboxone at home. Patient the had history of prescription opiate overuse. Patient does have some symptoms significant tremors urine drug screen is negative family members brought her in because of they believe patient had seizures although patient does appear to be encephalopathic doesn't have any significant seizures denied any loss of bowel or bladder incontinence. Denied tongue biting. Psychiatry was consulted with concerns of psychiatric issues contributing to her symptomatology which I believe is appropriate. Patient denied any UTI symptoms urine is abnormal but this is asymptomatic bacteriuria patient doesn't have any leukocytosis or fever. She denied any photophobia neck rigidity. 06/05/21 Patient is evaluated at the bedside. She is alert and oriented 3. She states that overall she is feeling better from yesterday however she is requesting her Suboxone as well as her medication for anxiety as she feels like she may be withdrawing this morning. Patient is a her mentation is improving however she still feels like she is not back to her baseline, she did have some erratic movements she was moving around in the bed quite a bit was unable to sit still the time my examination. Patient states that she was probably feeling depressive symptoms and unclear thinking for quite some time, however she states that she felt numb. She denies any suicidal ideations. She states that today she feels tearful, which is a positive thing. She does deny any dysuria, and she denies urinary urgency or frequency. Because patient's medications were changed yesterday and Suboxone was resumed we will monitor patient for one more night and she'll be discharged home tomorrow. Labs include a sodium of 135 and a glucose of 145. Vitals include a temp of 98, heart rate 81 sinus rhythm and a blood pressure 157/76. She is 100% on room air. ROS: Constitutional: Denied any fatigue denied any fever. Cardio vascular: denied any chest pain, palpitations Gastrointestinal denied any nausea vomiting, denies diarrhea denies abdominal pain Pulmonary: Denied any shortness of breath cough Neurologic denied any new focal deficits Psychiatric: Patient is tearful today however in a pleasant mood. She states that overall she is feeling better on the medication changes. All inpatient medications were reviewed and appropriate changes in these medications as dictated in the interval history and assessment and plan. PHYSICAL EXAMINATION: GENERAL: The patient is alert and oriented x3, not in any acute distress. Well developed, well nourished. Appears anxious tremulous HEENT: Pupils constricted barely reactive. EOMI. No scleral icterus. No conjunctival pallor. Normocephalic, atraumatic. No pharyngeal erythema. No thyromegaly. CARDIOVASCULAR: S1 and S2 present. No murmurs, rubs, or gallops. PULMONARY: Chest is clear to auscultation, no wheezing or crackles. ABDOMEN: Soft, nontender, nondistended, normoactive bowel sounds. No palpable organomegaly. MUSCULOSKELETAL: No joint swelling or deformity. EXTREMITIES: No cyanosis, clubbing, or pedal edema. NEUROLOGICAL: Gross neurological examination did not reveal any focal deficits. SKIN: No rashes. Assessment and plan -Possible opiate withdrawals patient is bit tremulous alert oriented 3, patient reviewed her Suboxone today Psychiatry will evaluate the patient. Patient doesn't appear to have any infection patient does have asymptomatic bacteriuria I do not believe he has urinary tract infection. Patient is anxious rather than daily years -Tachycardia: Secondary to above, resolved -Asymptomatic bacteriuria will not require any antibiotics at this time -History of prescription opiate overuse -Depression possibility of psychosis: Psychiatry was been consulted -Hypertension -Glucosuria will obtain hemoglobin A1c, A1c within normal limits at 5.6 patient was evaluated by psychiatry who feels that she does not meet criteria for inpatient psychiatric admission. Patient was started on trazodone as needed at bedtime for insomnia and mood, BuSpar 50 Mil[place] C times a day for anxiety as needed. In addition patient can resume her Suboxone. We will discontinue all the benzodiazepines. Patient was also educated on limiting the use of narcotics with any of her sedatives in limiting anticholinergic medications.Patient does report that she has not been sleeping and this could contribute to her altered mental status and psychoses will give her trazodone at bedtime as recommended from psychiatry. She does have clonidine also as needed for opiate withdrawal symptoms, DVT prophylaxis: early ambulation Plan will be to give patient a trazodone at bedtime to see if a restful sleep helps her mentation further improved. Please give the BuSpar 3 times a day as needed for anxiety as well as clonidine for signs of opiate withdrawal. Continue all other medications and he'll be to discharge home tomorrow. Objective - Vital Signs Vital signs: Vital Signs Temp 98.0 F 06/05/21 07:00 Pulse 81 06/05/21 07:00 Resp 16 06/05/21 07:00 BP 157/76 06/05/21 07:00 Pulse Ox 100 06/05/21 07:00 Intake & Output 06/04/21 06/05/21 06/05/21 18:59 06:59 18:59 Intake Total 150 Balance 150 Weight 90.718 kg Intake: Oral 150 Other: Voiding Method Toilet # Voids 1 - Labs CBC & Chem 7: 06/05/21 09:38 06/05/21 09:38 Labs: Abnormal Lab Results - Last 24 Hours (Table) 06/05/21 Range/Units 09:38 Sodium 135 L (137-145) mmol/L Glucose 145 H (74-99) mg/dL Assessment and Plan Time with Patient: Greater than 30
--- NOTE | 2021-06-05 13:55 | P.PN ---
Progress Note - Text Progress Note Date: 06/05/21 Interval History: Patient was seen for psychiatric follow-up today for patient's confusion and d elirium. Patient's nurse claims that patient appears to be clear and able to communicate today. Patient was seen at bedside and appeared to be more alert and less irritable today. She also appeared to be less confused during conversation and was appropriate with her answers. She states that she's been speaking with her daughter who brought in her purse yesterday and was started back on the Suboxone. She states that the BuSpar has been helping her with her anxiety. She claims that she did not sleep fairly last night and was educated about the trazodone which was ordered. Patient claims that her appetite is fair. She claims that she is not experiencing any withdrawal symptoms at this time. She was alert and oriented 3 and knows the current president is. Patient's attention span has improved significantly. At this time patient denies any suicidal or homical ideations, intent or plan. Patient denies any auditory, visual hallucinations and denies any paranoia or delusions. Patient denies any side effects from the medications and has been compliant with meds. Mental Status Exam: General Appearance: Patient appears to be stated age is alert, appears to be cooperative. Patient appears to have fair hygiene and grooming wearing hospital gown with fair eye contact. Behavior: Patient is calmly lying in bed without any agitated behavior. More cooperative today Speech: Patient's speech is fluent and nonpressured. Mood/Affect: Patient reports their mood is "better", affect is congruent Suicidality/Homicidality: Patient denies having any suicidal or homicidal ideation intent or plan. Perceptions: Patient denies any visual hallucinations and denies any auditory hallucinations Though content/process: Goal oriented. Logical. Memory and concentration: AOX3, imProve memory recall. Improved attention span. Judgment and insight: Improved Assessment Delirium, likely secondary to medication withdrawal (opiates) r/o Benzodiazipine withdrawal/abuse history of mild depression and anxiety history of opioid use disorder Plan: -At this time patient DOES NOT meet criteria for inpatient psychiatric admission. -Delirium precautions recommended with patient including - avoiding use of narcotics and MET[employer] MACH[employer]PER[employer] sedatives, limit anticholinergic medications when possible, frequent re-orientation, minimize use of restraints, open window shades during the day and close them at night -Would recommend the following medication changes/additions: continue with Trazodone 50 mg daily at bedtime prn for insomnia/mood, BuSpar 15 mg 3 times a day when necessary for anxiety. patient to continue on with her current outpt dose of suboxone and appropriate follow up. -structural worker to provide patient with outpatient mental health/psychiatry resources for appropriate follow up upon discharge -Communicative plan with nurse. -At this time psychiatry will sign off. -Please contact with any questions.
[2021-06-05] MEDS: IBUPROFEN 400 MG TAB PO PRN (17:18)
[2021-06-05] MEDS: cloNIDine HCL 0.1 MG TAB PO PRN (18:16)
[2021-06-06] MEDS: busPIRone HCl 5 MG TAB PO PRN (05:54)
[2021-06-06 06:06] LABS: African American GFR (CKD) >90 (>60 ml/min/1.73 sqM); Anion Gap 16 mmol/L; Blood Urea Nitrogen 16 mg/dL (7-17); Calcium 9.4 mg/dL (8.4-10.2); Carbon Dioxide 21 mmol/L (22-30); Chloride 97 mmol/L (98-107); Glucose 159 mg/dL (74-99); Non-African American GFR(CKD) 78 (>60 ml/min/1.73 sqM); Potassium 3.4 mmol/L (3.5-5.1); Sodium 134 mmol/L (137-145)
[2021-06-06] MEDS ORDERED: Potassium Replacement Protocol 1 EACH MISC MISCELLANE PRN (07:14)
[2021-06-06 08:05] VITALS: BP 154/82; PULSE 92; RESP 15; TEMP 98.5
[2021-06-06] MEDS: POTASSIUM CHLORIDE ER 20 MEQ TAB.ER PO SCH ×2 (08:17→09:54)
[2021-06-06] MEDS: TRIAMTERENE-HCTZ 37.5-25MG 1 EACH TAB PO SCH (08:17)
[2021-06-06] MEDS: IBUPROFEN 400 MG TAB PO PRN (09:09)
[2021-06-06] MEDS: cloNIDine HCL 0.1 MG TAB PO PRN (09:46)
[2021-06-06] MEDS: BUPRENORPHINE HCL SUBLINGUAL PRN (09:47)
[2021-06-06] MEDS: NALOXONE HCL SUBLINGUAL PRN (09:47)
[2021-06-06] MEDS: SODIUM CHLORIDE 0.9% 1,000 ML IV SCH (09:55)
--- NOTE | 2021-06-06 15:25 | P.DS ---
Providers Date of admission: 06/05/21 09:51 Attending physician: Forrest Lopez Consults: 06/03/21 21:31 Consult Physician Routine Consulting Provider: Yogi Cheng Consult Reason/Comments: stress reaction, increased depression, patient request to evaluate Do you want consulting provider notified?: Yes Primary care physician: Chelle Rodriguez [facility] Course: Final diagnoses -Possible opiate withdrawals patient is bit tremulous alert oriented 3, on Suboxone -Tachycardia: Secondary to opiate withdrawals, resolved -Asymptomatic bacteriuria will not require any antibiotics at this time -History of prescription opiate overuse -Depression possibility of psychosis: Psychiatry was been consulted -Hypertension -Glucosuria will obtain hemoglobin A1c, A1c within normal limits at 5.6 Discharge disposition Patient is discharged home abrasions by psychiatry who does not recommend inpatient psychiatric admission. Patient started on trazodone as needed at bedtime, BuSpar 15 mg 3 times a day as needed for anxiety, recommend stopping Xanax. We also sent her on clonidine 0.1 mg every 8 hours as needed for opiate withdrawals. Potassium was low today, replaced and we will recheck in 2-3 days. Hospital course This is a pleasant 38-year-old female with acute altered mental status. She was brought in by her family states that she was not acting like herself. Patient is alert and oriented 3 but she is having some tremors in her pupils are constricted she is probably undergoing opiate withdrawals. She does use Suboxone at home. Patient is a history of prescription opiate overuse, she does have significant tremors, urine drug screen is negative. Family thought she was having seizures however she appears encephalopathic. She denied any tongue biting or loss of bowel or bladder. Brain CT at admission was negative for any acute intracranial hemorrhage, mass effect or midline shift. Chest x-ray showed no acute cardiopulmonary process. EKG was normal sinus rhythm with possible left atrial enlargement however there were no ST or T-wave abnormalities. Psychiatry was consult because of concerns for the psychiatric issues contributing to her symptomatology which I believe is appropriate. She denied any UTI symptoms however she was of a questionable urinalysis, most likely asymptomatic bacteriuria there is no leukocytosis or fever. Patient is a denied any photophobia or neck rigidity. She was evaluated on 06/05/2021 by psychiatry who recommended changes she was still displaying some tremulous movements. Patient states that she feels better however she would like to get a good restful night's sleep. We did recommend giving as needed trazodone as well as her other medications as needed for anxiety. Her sodium was 135, blood pressure 157/76 inches and 100% on room air. Patient received the trazodone throughout the evening and upon evaluation on June 06 her mentation is improved drastically and she is able to focus better. Her pupils are 3 mm,, accommodating to distance and reactive to light. Focal neurological exam is normal. 06/06/2021 Patient seen to the bedside today she states that she feels well and ready to go home. Her lungs are clear S1-S2 is auscultated. She denies any nausea vomiting or diarrhea. She is able to get up in the shower today. Potassium is 3.4 we replace with oral supplements and we will send her for on discharge repeat her labs in 2-3 days. Focal neurological exam is negative. Psychiatry is enough the patient does not recommend inpatient treatment. We reconciled her medications and she follows with Dr. Corbett tomorrow. Please medication reconciliation for a list of current medications. Thank you for allowing us to participate in the care of this patient. Patient Condition at Discharge: Stable Plan - Discharge Summary New Discharge Prescriptions: New cloNIDine HCL [Catapres] 0.1 mg PO Q8H PRN #3 tab PRN Reason: opioid w/d traZODone HCL [Desyrel] 50 mg PO HS PRN #3 tab PRN Reason: Insomnia busPIRone HCl [Buspar] 15 mg PO TID PRN #9 tab PRN Reason: Anxiety Potassium Chloride ER [K-Dur 20] 20 meq PO DAILY #30 tablet Continue Triamterene-Hctz 37.5-25Mg [Maxzide 37.5-25] 1 tab PO DAILY Buprenorphine HCl/Naloxone HCl [Suboxone 4 mg-1 mg Sl Film] 1 film SL TID PRN PRN Reason: cravings Discontinued ALPRAZolam [Xanax] 0.5 - 1 mg PO TID PRN PRN Reason: Anxiety Discharge Medication List Triamterene-Hctz 37.5-25Mg [Maxzide 37.5-25] 1 tab PO DAILY 08/16/16 [History] Buprenorphine HCl/Naloxone HCl [Suboxone 4 mg-1 mg Sl Film] 1 film SL TID PRN 06/03/21 [History] Potassium Chloride ER [K-Dur 20] 20 meq PO DAILY #30 tablet 06/06/21 [Rx] busPIRone HCl [Buspar] 15 mg PO TID PRN #9 tab 06/06/21 [Rx] cloNIDine HCL [Catapres] 0.1 mg PO Q8H PRN #3 tab 06/06/21 [Rx] traZODone HCL [Desyrel] 50 mg PO HS PRN #3 tab 06/06/21 [Rx] Follow up Appointment(s)/Referral(s): Jennifer Corbett MD [Primary Care Provider] - 06/07/21 2:40 pm [facility] [NON-STAFF] - 1 Week Ambulatory/Diagnostic Orders: Basic Metabolic Panel [LAB.AMB] Time Frame: 3 Days, Location: None Selected Complete Blood Count w/diff [LAB.AMB] Time Frame: 3 Days, Location: None Selected Activity/Diet/Wound Care/Special Instructions: Please provide patient with community resources for outpatient mental health/psychiatric services Discharge Disposition: HOME SELF-CARE
== END 2021-06-06 11:41 | disposition home or self-care (01) | DRG 897 ==
LOC: EC 16:49 → 6NMEDSUR 21:29 → OBSVTOIN 06-05 09:51
PROVIDERS: ADMIT Hospitalist; ATTEND Hospitalist
DX: F11.13 Opioid abuse with withdrawal (principal); R00.0 Tachycardia, unspecified; I10 Essential (primary) hypertension; R81 Glycosuria; F29 Unspecified psychosis not due to a substance or known physiological condition; F32.9 Major depressive disorder, single episode, unspecified; F41.9 Anxiety disorder, unspecified; R82.71 Bacteriuria; Z20.822 Contact with and (suspected) exposure to COVID-19; Z88.0 Allergy status to penicillin
CPT/HCPCS: 36415; 70450; 71046; 80048; 80053; 80306; 80320; 81001; 82140; 82550; 83036; 84484; 85025; 85610; 85730; 87635; 93005; 96360; 96361; 99285

== ENCOUNTER 2023-10-19 09:53 | Emergency (ER) | payer BC ==
[2023-10-19] MEDS: LOPERAMIDE 2 MG CAP PO STA (10:30)
[2023-10-19] MEDS: SODIUM CHLORIDE 0.9% 1,000 ML IV STA (10:31)
[2023-10-19] MEDS: ONDANSETRON 4 MG/2 ML VIAL IVP STA (10:31)
--- NOTE | 2023-10-19 10:31 | ED ---
Nausea/Vomiting/Diarrhea HPI - General Chief complaint: Nausea/Vomiting/Diarrhea Stated complaint: V/N/D Time Seen by Provider: 10/19/23 10:30 Source: patient, RN notes reviewed Mode of arrival: ambulatory Limitations: no limitations - History of Present Illness Initial comments: Patient is a 48-year-old female presented to ER with chief complaint of Suboxone withdrawal. Patient states she has not had Suboxone in over a week. She is experiencing nausea, vomiting, diarrhea. She also feels like she is crawling out of her skin has been lashing out on people. She denies any SI/HI or hallucinations. Patient states she is working on getting another prescriber for her Suboxone currently. She also was experiencing chills but denies fevers. Denies chest pain, shortness of breath, abdominal pain, peripheral edema. - Related Data Home Medications Medication Instructions Recorded Confirmed Triamterene-Hctz 37.5-25Mg 1 tab PO DAILY 08/16/16 06/03/21 [Maxzide 37.5-25] Buprenorphine HCl/Naloxone HCl 1 film SL TID PRN 06/03/21 06/03/21 [Suboxone 4 mg-1 mg Sl Film] Previous Rx's Medication Instructions Recorded Potassium Chloride ER [K-Dur 20] 20 meq PO DAILY #30 tablet 06/06/21 busPIRone HCl [Buspar] 15 mg PO TID PRN #9 tab 06/06/21 cloNIDine HCL [Catapres] 0.1 mg PO Q8H PRN #3 tab 06/06/21 traZODone HCL [Desyrel] 50 mg PO HS PRN #3 tab 06/06/21 Allergies Allergy/AdvReac Type Severity Reaction Status Date / Time Penicillins Allergy Rash/Hives Verified 06/03/21 21:40 Review of Systems ROS Statement: Those systems with pertinent positive or pertinent negative responses have been documented in the HPI. ROS Other: All systems not noted in ROS Statement are negative. Past Medical History Past Medical History: Hypertension History of Any Multi-Drug Resistant Organisms: None Reported Past Surgical History: Ablation Additional Past Surgical History / Comment(s): [place] teeth extracted, D&C. Past Anesthesia/Blood Transfusion Reactions: No Reported Reaction Past Psychological History: Anxiety, Depression Smoking Status: Current every day smoker Past Alcohol Use History: Occasional Past Drug Use History: None Reported, Opiates - Past Family History Father Family Medical History: Cancer Additional Family Medical History / Comment(s): Prostate cancer. Mother Family Medical History: Cancer Additional Family Medical History / Comment(s): Breast cancer. General Exam Limitations: no limitations General appearance: alert, in no apparent distress, anxious Head exam: Present: atraumatic, normocephalic, normal inspection Eye exam: Present: normal appearance, PERRL, EOMI. Absent: scleral icterus, conjunctival injection, periorbital swelling Respiratory exam: Present: normal lung sounds bilaterally. Absent: respiratory distress, wheezes, rales, rhonchi, stridor Cardiovascular Exam: Present: regular rate, normal rhythm, normal heart sounds. Absent: systolic murmur, diastolic murmur, rubs, gallop, clicks GI/Abdominal exam: Present: soft, normal bowel sounds. Absent: distended, tenderness, guarding, rebound, rigid Neurological exam: Present: alert, oriented X3, CN II-XII intact Psychiatric exam: Present: normal affect, normal mood, anxious Skin exam: Present: warm, dry, intact, normal color. Absent: rash Course Vital Signs 10/19/23 10/19/23 10/19/23 09:55 10:30 10:35 Temperature 99.1 F Pulse Rate 96 96 92 Respiratory 18 18 18 Rate Blood Pressure 156/100 137/94 137/94 O2 Sat by Pulse 99 100 98 Oximetry 10/19/23 12:03 Temperature Pulse Rate 96 Respiratory 18 Rate Blood Pressure 135/92 O2 Sat by Pulse 99 Oximetry Medical Decision Making - Medical Decision Making Was pt. sent in by a medical professional or institution (, PA, SHOWPLACE MANAGER, urgent care, hospital, or skilled nursing...) When possible be specific @ -No Did you speak to anyone other than the patient for history (EMS, parent, family, police, friend...)? What history was obtained from this source @ -No Did you review nursing and triage notes (agree or disagree)? Why? @ -I reviewed and agree with nursing and triage notes Were old charts reviewed (outside hosp., previous admission, EMS record, old EKG, old radiological studies, urgent care reports/EKG's, skilled nursing records)? Report findings @ -No old charts were reviewed Differential Diagnosis (chest pain, altered mental status, abdominal pain women, abdominal pain men, vaginal bleeding, weakness, fever, dyspnea, syncope, headache, dizziness, GI bleed, back pain, seizure, CVA, palpatations, mental health, musculoskeletal)? @ -Differential Weakness:Hypoglycemia, shock, sepsis, hyponatremia, anemia, infection, NM, ETOH, adverse medicine reaction, overdose, stroke, this is not meant to be an all-inclusive list. EKG interpreted by me (3pts min.). @ -As above X-rays interpreted by me (1pt min.). @ -None done CT interpreted by me (1pt min.). @ -None done U/S interpreted by me (1pt. min.). @ -None done What testing was considered but not performed or refused? (CT, X-rays, U/S, labs)? Why? @ -None What meds were considered but not given or refused? Why? @ -None Did you discuss the management of the patient with other professionals (professionals i.e. , PA, SHOWPLACE MANAGER, lab, RT, psych nurse, manager social work, websphere consultant, teacher, commercial escrow officer, community case manager)? Give summary @ -No Was smoking cessation discussed for >3mins.? @ -I discussed smoking cessation for greater than 3 minutes. The risk of smoking were discussed with the patient including but not limited to risks of cancer, stroke, coronary artery disease and COPD. Also discussed with patient were multiple methods of quitting smoking. Lastly we discussed the financial cost of smoking. Was critical care preformed (if so, how long)? @ -No Were there social determinants of health that impacted care today? How? (Homelessness, low income, unemployed, alcoholism, drug addiction, transportation, low edu. Level, literacy, decrease access to med. care, residential, rehab)? @ -Decreased access to medical care and opioid dependence. Patient's primary c are physician who prescribed Suboxone is no longer in practice. Patient is having difficulties finding a new provider to prescribe Suboxone. Was there de-escalation of care discussed even if they declined (Discuss DNR or withdrawal of care, Hospice)? DNR status @ -No What co-morbidities impacted this encounter? (DM, HTN, Smoking, COPD, CAD, Cancer, CVA, ARF, Chemo, Hep., AIDS, mental health diagnosis, sleep apnea, morbid obesity)? @ -Opioid dependence, hypertension, smoking Was patient admitted / discharged? Hospital course, mention meds given and route, prescriptions, significant lab abnormalities, going to OR and other pertinent info. @ -Discharge. Patient is a 48-year-old female presented to ER with chief complaint of Suboxone withdrawal. History and physical exam were completed. Vitals stable. Patient in no signs of acute distress and nontoxic-appearing. Lung sounds clear to auscultation bilaterally. Patient denied any SI/HI. Labs obtained unimpressive. EKG without signs of acute infarct or ischemia. COVID, RSV, influenza negative. Urine without signs of infection. Patient received IV fluids, Zofran, Imodium, PO Catapres for symptom control in the ER. Patient informed of laboratory results, all questions answered. I discussed smoking cessation for greater than 3 minutes. The risk of smoking were discussed with the patient including but not limited to risks of cancer, stroke, coronary artery disease and COPD. Also discussed with patient were multiple methods of quitting smoking. Lastly we discussed the financial cost of smoking. Advised patient to follow-up with PCP in the next 1 to 2 days. Referral was provided as she is currently trying to find another primary care provider. Zofran starter pack given. Return parameters were discussed. Patient be discharged stable condition with follow-up to PCP. Patient expressed understanding and agreement with care plan. Undiagnosed new problem with uncertain prognosis? @ -No Drug Therapy requiring intensive monitoring for toxicity (Heparin, Nitro, Insulin, Cardizem)? @ -No Were any procedures done? @ -No Diagnosis/symptom? @ -Opioid withdrawal/opioid dependence Acute, or Chronic, or Acute on Chronic? @ -Acute Uncomplicated (without systemic symptoms) or Complicated (systemic symptoms)? @ -Uncomplicated Side effects of treatment? @ -No Exacerbation, Progression, or Severe Exacerbation? @ -No Poses a threat to life or bodily function? How? (Chest pain, USA, NM, pneumonia, PE, COPD, DKA, ARF, appy, cholecystitis, CVA, Diverticulitis, Homicidal, Suicidal, threat to staff... and all critical care pts) @ -Possibly - Lab Data Result diagrams: 10/19/23 10:26 10/19/23 10:26 Lab Results 10/19/23 10/19/23 10/19/23 Range/Units 10:26 10: 10:26 WBC 6.0 (3.8-10.6) k/uL RBC 4.77 (3.80-5.40) m/uL Hgb 14.9 (11.4-16.0) gm/dL Hct 46.2 H (34.0-46.0) % MCV 97.0 (80.0-100.0) fL MCH 31.2 (25.0-35.0) pg MCHC 32.2 (31.0-37.0) g/dL RDW 12.3 (11.5-15.5) % Plt Count 354 (150-450) k/uL MPV 7.6 Neutrophils % 68 % Lymphocytes % 23 % Monocytes % 5 % Eosinophils % 1 % Basophils % 0 % Neutrophils # 4.1 (1.3-7.7) k/uL Lymphocytes # 1.4 (1.0-4.8) k/uL Monocytes # 0.3 (0-1.0) k/uL Eosinophils # 0.1 (0-0.7) k/uL Basophils # 0.0 (0-0.2) k/uL Sodium 139 (137-145) mmol/L Potassium 4.1 (3.5-5.1) mmol/L Chloride 108 H (98-107) mmol/L Carbon Dioxide 18 L (22-30) mmol/L Anion Gap 13 mmol/L BUN 11 (7-17) mg/dL Creatinine 0.76 (0.52-1.04) mg/dL Est GFR (CKD-EPI)AfAm >90 (>60 ml/min/1.73 sqM) Est GFR (CKD-EPI)NonAf >90 (>60 ml/min/1.73 sqM) Glucose 119 H (74-99) mg/dL Plasma Lactic Acid Pablo (0.7-2.0) mmol/L Calcium 10.5 H (8.4-10.2) mg/dL Total Bilirubin 0.5 (0.2-1.3) mg/dL AST 22 (14-36) U/L ALT 14 (4-34) U/L Alkaline Phosphatase 81 (38-126) U/L Total Protein 8.8 H (6.3-8.2) g/dL Albumin 5.3 H (3.5-5.0) g/dL Urine Color Light Yellow Urine Appearance Cloudy H (Clear) Urine pH 7.0 (5.0-8.0) Ur Specific Rice 1.018 (1.001-1.035) Urine Protein Trace H (Negative) Urine Glucose (UA) Negative (Negative) Urine Ketones Negative (Negative) Urine Blood Negative (Negative) Urine Nitrite Negative (Negative) Urine Bilirubin Negative (Negative) Urine Urobilinogen <2.0 (<2.0) mg/dL Ur Leukocyte Esterase Negative (Negative) Urine RBC 1 (0-5) /hpf Urine WBC 3 (0-5) /hpf Ur Squamous Epith Cells 7 H (0-4) /hpf Urine Bacteria Rare H (None) /hpf Urine Mucus Few H (None) /hpf Urine Yeast (Budding) Moderate H (None) /hpf Influenza Type A (PCR) (Not Detectd) Influenza Type B (PCR) (Not Detectd) RSV (PCR) (Not Detectd) SARS-CoV-2 (PCR) (Not Detectd) 10/19/23 10/19/23 Range/Units 10:26 10:45 WBC (3.8-10.6) k/uL RBC (3.80-5.40) m/uL Hgb (11.4-16.0) gm/dL Hct (34.0-46.0) % MCV (80.0-100.0) fL MCH (25.0-35.0) pg MCHC (31.0-37.0) g/dL RDW (11.5-15.5) % Plt Count (150-450) k/uL MPV Neutrophils % % Lymphocytes % % Monocytes % % Eosinophils % % Basophils % % Neutrophils # (1.3-7.7) k/uL Lymphocytes # (1.0-4.8) k/uL Monocytes # (0-1.0) k/uL Eosinophils # (0-0.7) k/uL Basophils # (0-0.2) k/uL Sodium (137-145) mmol/L Potassium (3.5-5.1) mmol/L Chloride (98-107) mmol/L Carbon Dioxide (22-30) mmol/L Anion Gap mmol/L BUN (7-17) mg/dL Creatinine (0.52-1.04) mg/dL Est GFR (CKD-EPI)AfAm (>60 ml/min/1.73 sqM) Est GFR (CKD-EPI)NonAf (>60 ml/min/1.73 sqM) Glucose (74-99) mg/dL Plasma Lactic Acid Pablo 1.1 (0.7-2.0) mmol/L Calcium (8.4-10.2) mg/dL Total Bilirubin (0.2-1.3) mg/dL AST (14-36) U/L ALT (4-34) U/L Alkaline Phosphatase (38-126) U/L Total Protein (6.3-8.2) g/dL Albumin (3.5-5.0) g/dL Urine Color Urine Appearance (Clear) Urine pH (5.0-8.0) Ur Specific Rice (1.001-1.035) Urine Protein (Negative) Urine Glucose (UA) (Negative) Urine Ketones (Negative) Urine Blood (Negative) Urine Nitrite (Negative) Urine Bilirubin (Negative) Urine Urobilinogen (<2.0) mg/dL Ur Leukocyte Esterase (Negative) Urine RBC (0-5) /hpf Urine WBC (0-5) /hpf Ur Squamous Epith Cells (0-4) /hpf Urine Bacteria (None) /hpf Urine Mucus (None) /hpf Urine Yeast (Budding) (None) /hpf Influenza Type A (PCR) Not Detected (Not Detectd) Influenza Type B (PCR) Not Detected (Not Detectd) RSV (PCR) Not Detected (Not Detectd) SARS-CoV-2 (PCR) Not Detected (Not Detectd) - EKG Data -: EKG Interpreted by Me EKG Comments: EKG taken at 10: 41 shows normal sinus rhythm with no acute ST segment or T wave abnormalities. Ventricular rate 89, ME interval 131, QRS duration 78, QT/QTc 358/404. Disposition Clinical Impression: Opiate withdrawal Disposition: HOME SELF-CARE Condition: Stable Instructions (If sedation given, give patient instructions): Opioid Withdrawal (ED) Additional Instructions: Please follow-up with PCP in the next 1 to 2 days. Return to ER for any new or worsening symptoms. Is patient prescribed a controlled substance at d/c from ED?: No Referrals: Francois Lazo MD [Primary Care Provider] - 1-2 days Forms: Area PCPs, In Substance Abuse Facilities Time of Disposition: 11:45
[2023-10-19 10:44] VITALS: RESP 18; TEMP 99.1
[2023-10-19 10:49] LABS: Basophils % (A) 0 %; Eosinophils # (A) 0.1 k/uL (0-0.7); Eosinophils % (A) 1 %; HCT 46.2 % (34.0-46.0); HGB 14.9 gm/dL (11.4-16.0); Lymphocytes # (A) 1.4 k/uL (1.0-4.8); Lymphocytes % (A) 23 %; MCH 31.2 pg (25.0-35.0); MCHC 32.2 g/dL (31.0-37.0); Mean Platelet Volume 7.6; Monocytes # (A) 0.3 k/uL (0-1.0); Monocytes % (A) 5 %; Neutrophils # (A) 4.1 k/uL (1.3-7.7); Neutrophils % (A) 68 %; Platelet Count 354 k/uL (150-450); RBC 4.77 m/uL (3.80-5.40); RDW 12.3 % (11.5-15.5)
[2023-10-19 10:58] LABS: Appearance,Urine Cloudy (Clear); Bacteria,Urine Rare /hpf; Bilirubin,Urine Negative (Negative); Blood,Urine Negative (Negative); Budding Yeast,Urine Moderate /hpf; Color,Urine Light Yellow; Glucose,Urine (UA) Negative (Negative); Ketones,Urine Negative (Negative); Leukocyte Esterase,Urine Negative (Negative); Mucus,Urine Few /hpf; Nitrite,Urine Negative (Negative); Protein,Urine Trace (Negative); RBC,Urine 1 /hpf (0-5); Specific Gravity,Urine 1.018 (1.001-1.035); Squamous Epithelial Cell,Urine 7 /hpf (0-4); Urobilinogen,Urine <2.0 mg/dL (<2.0); WBC,Urine 3 /hpf (0-5)
[2023-10-19 11:03] LABS: ALT 14 U/L (4-34); AST 22 U/L (14-36); African American GFR (CKD) >90 (>60 ml/min/1.73 sqM); Albumin 5.3 g/dL (3.5-5.0); Alkaline Phosphatase 81 U/L (38-126); Anion Gap 13 mmol/L; Blood Urea Nitrogen 11 mg/dL (7-17); Calcium 10.5 mg/dL (8.4-10.2); Carbon Dioxide 18 mmol/L (22-30); Chloride 108 mmol/L (98-107); Glucose 119 mg/dL (74-99); Non-African American GFR(CKD) >90 (>60 ml/min/1.73 sqM); Potassium 4.1 mmol/L (3.5-5.1); Sodium 139 mmol/L (137-145); Total Bilirubin 0.5 mg/dL (0.2-1.3); Total Protein 8.8 g/dL (6.3-8.2)
[2023-10-19] MEDS: cloNIDine HCL 0.1 MG TAB PO STA (11:13)
[2023-10-19] MEDS: ONDANSETRON 4 MG ODT STARTER PACK 2 TAB BTL PO STA (11:53)
[2023-10-19 12:15] VITALS: BP 135/92; PULSE 96
== END 2023-10-19 12:03 | disposition home or self-care (01) ==
LOC: EC 09:53
DX: F11.23 Opioid dependence with withdrawal (principal); I10 Essential (primary) hypertension; F17.200 Nicotine dependence, unspecified, uncomplicated; Z86.59 Personal history of other mental and behavioral disorders; Z20.822 Contact with and (suspected) exposure to COVID-19; Z88.0 Allergy status to penicillin
CPT/HCPCS: 36415; 93005; 80053; 83605; 85025; 81001; 87636; 99284; 96374; 96361; 99406; J2405; S0119

== ENCOUNTER → 2023-12-01 | Outpatient (CLI) | payer BC ==
--- NOTE | 2023-12-01 17:06 | US ---
EXAMINATION TYPE: US thyroid st tissue head/neck DATE OF EXAM: 12/01/2023 COMPARISON: NONE CLINICAL INDICATION: Female, 48 years old with history of Z12 E04.9 ENLARGED THYROID; Pt states Dr. nohelia wolff thyroid was enlarged, no known thyroid issues GLAND SIZE: Right Lobe: 5.7 x 2.3 x 2.5 cm Overall Parenchyma: heterogeneous Left Lobe: 6.0 x 2.3 x 2.1 cm Overall Parenchyma: heterogeneous Isthmus Thickness: 0.9 cm NODULES RIGHT: # of nodules measured on right: 0 LEFT: # of nodules measured on left: 0 ISTHMUS: # of nodules measured in the isthmus: 0 Bilateral neck scanned, no evidence of lymphadenopathy. Bilateral thyroid enlarged and heterogeneous without evidence of definite nodules. IMPRESSION: 2017 ACR TI-RADS LEVEL: *Highest TI-RADS level nodule reported
--- NOTE | 2023-12-03 00:44 | MM ---
Reason for Exam: Screening (asymptomatic). Last mammogram was performed 6 year(s) and 10 month(s) ago. Patient History: Menarche at age 10. First Full-Term at age 17. Hysterectomy at age 43. Postmenopausal. Patient has history of breast feeding. Hormonal Contraceptives, starting at age 13. Mother had breast cancer, age 60. Risk Values: Lu 5 year model risk: 1.8%. NCI Lifetime model risk: 13.5%. Prior Study Comparison: 05/18/2008 Screening Mammogram, [facility]. 09/16/2013 Bilateral Screening Mammogram, [facility]. 02/24/2017 Bilateral Screening Mammogram, [facility]. Tissue Density: The breasts are heterogeneously dense, which may obscure small masses. Findings: Analyzed By CAD. The pattern is symmetrical. No significant interval change is evident. Focal asymmetries within the right mid mediolateral oblique, stable from comparison No suspicious groups of microcalcifications, spiculated or lobular masses, architectural distortion or other secondary signs of malignancy are mammographically apparent. Overall Assessment: Benign, BI-RAD 2 Management: Screening Mammogram of both breasts in 1 year. A negative mammogram report should not preclude additional follow up of suspicious palpable abnormalities. Patient should continue monthly self breast exam. A clinical breast exam by your physician is recommended on an annual basis and results should be correlated with mammographic findings. Electronically signed and approved by: Yogi Gaspar D.O. Radiologis
== END | disposition home or self-care (01) ==
LOC: RADUSWWP 14:34
PROVIDERS: ATTEND Family Medicine
DX: Z12.31 Encounter for screening mammogram for malignant neoplasm of breast (principal); E04.1 Nontoxic single thyroid nodule
CPT/HCPCS: 76536; 77063; 77067

== ENCOUNTER → 2024-12-30 | Outpatient (CLI) | payer BC ==
--- NOTE | 2025-01-02 07:59 | MM ---
Reason for Exam: Screening (asymptomatic). Last mammogram was performed 1 year(s) and 1 month(s) ago. Patient History: Menarche at age 10. First Full-Term at age 17. Hysterectomy at age 43. Postmenopausal. Patient has history of breast feeding. Hormonal Contraceptives, starting at age 13. Mother had breast cancer, age 60. Risk Values: Lu 5 year model risk: 1.9%. NCI Lifetime model risk: 13.3%. Prior Study Comparison: 09/16/2013 Bilateral Screening Mammogram, [facility]. 02/24/2017 Bilateral Screening Mammogram, [facility]. 12/01/2023 Bilateral MG 3D screening mammo w/cad, [facility]. Tissue Density: There are scattered areas of fibroglandular density. Findings: Analyzed By CAD. Right breast: There is no suspicious group of microcalcifications or new suspicious mass. Left breast: There is no suspicious group of microcalcifications or new suspicious mass. Overall Assessment: Negative, BI-RAD 1 Management: Screening Mammogram of both breasts in [address] [facility] will attempt to contact patient to return for supplemental views and ultrasound if indicated. Patient should continue monthly self-breast exams. A clinical breast exam by your physician is recommended on an annual basis. This exam should not preclude additional follow-up of suspicious palpable abnormalities. Note on Lu scores and lifetime risk: 1. A Lu score greater than 3% is considered moderate risk. If this is the case, consider specialist referral to assess eligibility for a risk reducing agent. 2. If overall lifetime risk for the development of breast cancer is 20% or higher, the patient may qualify for future screening with alternating mammogram and breast MRI. [facility], , 01/02/2025 7:56 AM. Electronically signed and approved by: Larry Lloyd DO
== END | disposition home or self-care (01) ==
LOC: RADMAMWWP 15:10
PROVIDERS: ATTEND Family Medicine
DX: Z12.31 Encounter for screening mammogram for malignant neoplasm of breast (principal); R92.323 Mammographic fibroglandular density, bilateral breasts; Z78.0 Asymptomatic menopausal state; Z80.3 Family history of malignant neoplasm of breast; Z92.0 Personal history of contraception
CPT/HCPCS: 77063; 77067